=== PATIENT | male | born 1965 | race Caucasian/White ===

== ENCOUNTER 2017-01-06 16:45 | Emergency (ER) | payer OTHER ==
[~2017-01-06] VITALS: Ht 165.1 cm; Wt 75.9 kg
[~2017-01-06 16:45] MED LIST: ASPI81CT89 PO; METF500T PO; METO25TA PO; SIMV20TA1 PO; SYN.075 PO; VAS2.5 PO
--- NOTE | 2017-01-06 16:45 | NUR ---
PATIENT AMBULATED TO ER BED
[2017-01-06 16:46] VITALS: BP 147/88
[2017-01-06] MEDS ORDERED: NACL 0.9% 1,000 ML IV SCH (16:54)
--- NOTE | 2017-01-06 16:54 | NUR ---
Patient being evaluated by physician at bedside.
[2017-01-06 17:23] LABS: APPEARANCE,URINE CLEAR (CLEAR); BLOOD, URINE NEGATIVE (NEGATIVE); COLOR,URINE YELLOW (YELLOW); LEUKOCYTE ESTERASE ,URINE NEGATIVE (NEGATIVE); NITRITE, URINE NEGATIVE (NEGATIVE); PROTEIN,URINE TRACE (NEGATIVE); UGLUCOSE TRACE (NEGATIVE)
[2017-01-06 17:24] LABS: ANION GAP 13.3 (8-16); CALCIUM 10.7 mg/dL (8.5-10.1); CARBON DIOXIDE 27.7 mmol/L (21-32); CREATININE 1.1 mg/dL (0.6-1.3)
[2017-01-06 17:30] LABS: ALBUMIN 3.4 g/dL (3.4-5.0); TOTAL BILIRUBIN 0.9 mg/dL (0.0-1.0); TOTAL PROTEIN, SERUM 8.9 g/dL (6.4-8.2)
--- NOTE | 2017-01-06 17:30 | NUR ---
51/M BIB FAMILY C/O RIGHT TESTICULAR SWELLING x 2 WEEKS. PT DENIES PAIN AT THIS TIME. PT DENIES TRAUMA OR INJURY. RIGHT TESTICLE POS SWELLING, NEG REDNESS NO SIGN OF INJURY. AAOx4, PERRLA, BREATHING EVEN AND UNLABORED. ERMD NOTIFIED OF PATIENT STATUS.
[2017-01-06 17:31] LABS: BILIRUBIN,URINE NEGATIVE (NEGATIVE)
[2017-01-06 17:32] LABS: BASOPHILS % (AUTO) 0.9 % (0.0-2.0); EOSINOPHILS # (AUTO) 0.1 K/uL (0-0.4); EOSINOPHILS % (AUTO) 2.7 % (0.0-4.0); HEMATOCRIT 41.2 % (36-52); HEMOGLOBIN 13.4 g/dL (12.0-18.0); LYMPHOCYTES # (AUTO) 1.2 K/uL (2.0-11.5); LYMPHOCYTES % (AUTO) 23.5 % (20.5-51.1); MEAN CORPUSCULAR HEMOGLOBIN 27 pg (27-31); MEAN CORPUSCULAR HGB CONC 33 g/dL (33-37); MEAN CORPUSCULAR VOLUME 83 fL (80-94); MONOCYTES # (AUTO) 0.5 K/uL (0.8-1.0); MONOCYTES % (AUTO) 9.4 % (1.7-9.3); NEUTROPHILS # (AUTO) 3.2 K/uL (1.8-7.7); NEUTROPHILS % (AUTO) 63.5 % (42.2-75.2); PLATELET COUNT (AUTO) 191 K/uL (140-450); RED BLOOD CELL COUNT(AUTO) 4.99 MIL/uL (4.20-6.10); RED CELL DISTRIBUTION WIDTH 13.2 % (11.6-13.7)
[2017-01-06 17:33] LABS: BACTERIA,URINE RARE /HPF (None Seen); MUCUS,URINE 3+ /LPF (None Seen); RBC,URINE 0-3 /HPF (0-5); SQUAMOUS EPITHELIAL CELL,UR 0-3 /LPF (0-3 (FEW)); WBC,URINE 0-3 /HPF (0-5)
--- NOTE | 2017-01-06 17:45 | NUR ---
Patient being evaluated by physician at bedside.
--- NOTE | 2017-01-06 18:02 | NUR ---
Patient discharged with v/s stable. Written and verbal after care instructions given and explained. Patient alert, oriented and verbalized understanding of instructions. Ambulatory with steady gait. All questions addressed prior to discharge. ID band removed. Patient advised to follow up with PMD. Rx of TYLENOL 325MG AND DOXYCYCLINE 100MG given. Patient educated on indication of medication including possible reaction and side effects. Opportunity to ask questions provided and answered.
[2017-01-06 18:03] VITALS: BP 132/82
== END 2017-01-06 18:02 | disposition home or self-care (01) ==
LOC: MED 16:45
DX: N50.89 Other specified disorders of the male genital organs (principal); R03.0 Elevated blood-pressure reading, without diagnosis of hypertension; E11.9 Type 2 diabetes mellitus without complications; I10 Essential (primary) hypertension; E05.90 Thyrotoxicosis, unspecified without thyrotoxic crisis or storm; Z79.82 Long term (current) use of aspirin
CPT/HCPCS: 36415; 76870; 80053; 81001; 82150; 83690; 85025; 99285

== ENCOUNTER 2018-03-18 05:45 | Emergency (ER) | payer MEDICAID, OTHER ==
[~2018-03-18] VITALS: Ht 165.1 cm; Wt 71.7 kg
[2018-03-18 05:50] VITALS: BP 212/125
--- NOTE | 2018-03-18 05:54 | NUR ---
PT TAKEN TO BED 11
--- NOTE | 2018-03-18 06:07 | NUR ---
Dr. Gutierrez evaluating patient at bedside.
[2018-03-18] MEDS ORDERED: ENALAPRILAT 2.5 MG/2 ML VIAL IVP ONE (06:10)
[2018-03-18] MEDS ORDERED: hydrALAZINE 20 MG/ML VIAL IVP ONE (06:10)
--- NOTE | 2018-03-18 06:15 | NUR ---
C/O POSTERIOR HEAD PAIN THAT RADIATES TO NECK S/P FALL 3 WEEKS AGO. PT HAS HAD INTERMITTENT HEADACHES SINCE INCIDENT. PT AA&OX4,PERRL. PT HAS ELEVATED BP ON ARRIVAL TO ED STATES HE DID NOT TAKE HIS BP RX TODAY. SKIN TO BACK OF HEAD WARM, DRY, INTACT, NO REDNESS OR SWELLING NOTED. PMH HTN, DM
--- NOTE | 2018-03-18 06:45 | NUR ---
PT TAKEN TO CT SCAN VIA WHEELCHAIR
--- NOTE | 2018-03-18 06:58 | NUR ---
Alyx martínez in [facility] - 03/18/18 at 0703 by ALEC PT RETURNED FROM CT SCAN VIA WHEELCHAIR.
--- NOTE | 2018-03-18 06:59 | NUR ---
PT WHEELED BACK FROM CT VIA WHEELCHAIR IN STABLE CONDITION
[2018-03-18 07:00] LABS: BASOPHILS % (AUTO) 1.2 % (0.0-2.0); EOSINOPHILS # (AUTO) 0.1 K/uL (0-0.4); EOSINOPHILS % (AUTO) 3.3 % (0.0-4.0); HEMATOCRIT 30.3 % (36-52); HEMOGLOBIN 10.8 g/dL (12.0-18.0); LYMPHOCYTES # (AUTO) 0.8 K/uL (2.0-11.5); LYMPHOCYTES % (AUTO) 22.6 % (20.5-51.1); MEAN CORPUSCULAR HEMOGLOBIN 29 pg (27-31); MEAN CORPUSCULAR HGB CONC 36 g/dL (33-37); MEAN CORPUSCULAR VOLUME 80.4 fL (80-94); MONOCYTES # (AUTO) 0.4 K/uL (0.8-1.0); MONOCYTES % (AUTO) 11.1 % (1.7-9.3); NEUTROPHILS # (AUTO) 2.2 K/uL (1.8-7.7); NEUTROPHILS % (AUTO) 61.8 % (42.2-75.2); PLATELET COUNT (AUTO) 142 K/uL (140-450); RED BLOOD CELL COUNT(AUTO) 3.77 MIL/uL (4.20-6.10); WHITE BLOOD COUNT (AUTO) 3.6 K/uL (4.8-10.8)
[2018-03-18 07:06] LABS: ANION GAP 10.8 (8-16); CARBON DIOXIDE 29.8 mmol/L (21-32); CREATININE 2.3 mg/dL (0.7-1.3); POTASSIUM 3.6 mmol/L (3.5-5.1)
--- NOTE | 2018-03-18 07:15 | NUR ---
report given to ashley Maya, transfer of care at this time.
[2018-03-18] MEDS ORDERED: cloNIDine 0.1 MG TAB PO ONE (07:20)
--- NOTE | 2018-03-18 07:39 | NUR ---
PT AWAKE, ALERT, ORIENTED, IN NAD. PT CURRENTLY HYPERTYENSIVEM, 187 DR LIND INFORMED, MEDICATED WITH CLONIDINE 0.2MG ORDERED.PT DENIES ANY HEADACHE, CHEST PAIN OR SOB. RESP EVEN AND UNLABORED, SKIN W/D/I. PT ON TELE-SR, AFEBRILE. AWAIITNG ADMISSION BED AND FURTHER LAB TEST RESULTS. CN TEIDA AWARE.
[2018-03-18 07:43] LABS: ALBUMIN 3.4 g/dL (3.4-5.0); TOTAL BILIRUBIN 0.6 mg/dL (0.0-1.0)
[2018-03-18 08:30] LABS: CREATINE KINASE MB 1.3 ng/mL (0-3.6)
--- NOTE | 2018-03-18 09:06 | NUR ---
NO ACUTE CHNAGE IN CONDITION DR LIND INFORMED THAT OT REORTS MILD GNERELAIZED HEADACHE 11/24 AND REQUESTING TYLENOL. NO ORDERS RECEIVED AT THIS TIME
--- NOTE | 2018-03-18 11:00 | NUR ---
COVERING FOR NURSE WILLIAM FOR THE CARE OF PATIENT
[2018-03-18 12:08] VITALS: BP 134/76
--- NOTE | 2018-03-18 12:08 | NUR ---
Patient discharged with v/s stable. Written and verbal after care instructions given and explained. Patient alert, oriented and verbalized understanding of instructions. Ambulatory with steady gait. All questions addressed prior to discharge. ID band removed. Patient advised to follow up with PMD. Rx of CLONIDINE given. Patient educated on indication of medication including possible reaction and side effects. Opportunity to ask questions provided and answered.
[2018-03-18 12:10] LABS: BARBITURATE, URINE NEGATIVE ng/ml (NEG <=200); BENZODIAZEPINE, URINE NEGATIVE ng/mL (NEG <=200); CANNABINOID, URINE NEGATIVE ng/mL (NEG <=50); COCAINE, URINE NEGATIVE ng/mL (NEG <=300); OPIATE, URINE NEGATIVE ng/mL (NEG <=2000); PHENCYCLIDINE SCREEN,URINE NEGATIVE ng/mL (NEG <=25)
[2018-03-18 13:09] LABS: APPEARANCE,URINE CLEAR (CLEAR); COLOR,URINE YELLOW (YELLOW)
[2018-03-18 13:10] LABS: BILIRUBIN,URINE NEGATIVE (NEGATIVE); BLOOD, URINE NEGATIVE (NEGATIVE); LEUKOCYTE ESTERASE ,URINE NEGATIVE (NEGATIVE); NITRITE, URINE NEGATIVE (NEGATIVE); UGLUCOSE TRACE (NEGATIVE)
[2018-03-18 13:12] LABS: RBC,URINE 0-5 (RARE) /HPF (0-5); WBC,URINE 0-5 (RARE) /HPF (0-5)
== END 2018-03-18 12:08 | disposition home or self-care (01) ==
LOC: MED 05:45
DX: G44.209 Tension-type headache, unspecified, not intractable (principal); I12.9 Hypertensive chronic kidney disease with stage 1 through stage 4 chronic kidney disease, or unspecified chronic kidney disease; N18.3 Chronic kidney disease, stage 3 (moderate); E11.22 Type 2 diabetes mellitus with diabetic chronic kidney disease; E78.5 Hyperlipidemia, unspecified; Z79.899 Other long term (current) drug therapy
CPT/HCPCS: 36415; 70450; 71045; 80053; 80305; 81001; 82550; 82553; 83880; 84484; 85025; 93005; 96374; 96375; 99285; J0360; J3490

== ENCOUNTER 2018-06-03 16:04 | Emergency (ER) | payer MEDICAID ==
[~2018-06-03] VITALS: Ht 165.1 cm; Wt 73.5 kg
[2018-06-03 16:20] VITALS: BP 176/89
[2018-06-03] MEDS ORDERED: KETOROLAC 30 MG/ML VIAL IM ONE (19:15)
[2018-06-03 19:35] VITALS: BP 70/89
== END 2018-06-03 19:35 | disposition home or self-care (01) ==
LOC: MED 16:04
DX: S86.811A Strain of other muscle(s) and tendon(s) at lower leg level, right leg, initial encounter (principal); E11.9 Type 2 diabetes mellitus without complications; I10 Essential (primary) hypertension; E05.90 Thyrotoxicosis, unspecified without thyrotoxic crisis or storm; Z79.899 Other long term (current) drug therapy; Z79.82 Long term (current) use of aspirin; X58.XXXA Exposure to other specified factors, initial encounter; Y93.89 Activity, other specified; Y92.89 Other specified places as the place of occurrence of the external cause; Y99.8 Other external cause status
CPT/HCPCS: 93971; 96372; 99284; J1885; Q0092

== ENCOUNTER 2018-07-18 20:38 | Inpatient (IN) | payer MEDICAID ==
[~2018-07-18] VITALS: Ht 165.1 cm; Wt 71.7 kg
[2018-07-18 20:41] VITALS: BP 230/110
[2018-07-18 21:13] LABS: BASOPHILS % (AUTO) 0.4 % (0.0-2.0); EOSINOPHILS # (AUTO) 0.1 K/uL (0-0.4); EOSINOPHILS % (AUTO) 3.9 % (0.0-4.0); HEMOGLOBIN 8.8 g/dL (12.0-18.0); LYMPHOCYTES % (AUTO) 29.9 % (20.5-51.1); MEAN CORPUSCULAR HEMOGLOBIN 29 pg (27-31); MEAN CORPUSCULAR HGB CONC 35 g/dL (33-37); MEAN CORPUSCULAR VOLUME 82.3 fL (80-94); MONOCYTES # (AUTO) 0.4 K/uL (0.8-1.0); MONOCYTES % (AUTO) 10.6 % (1.7-9.3); NEUTROPHILS # (AUTO) 1.9 K/uL (1.8-7.7); NEUTROPHILS % (AUTO) 55.2 % (42.2-75.2); RED BLOOD CELL COUNT(AUTO) 3.04 MIL/uL (4.20-6.10); RED CELL DISTRIBUTION WIDTH 14.1 % (11.6-13.7); WHITE BLOOD COUNT (AUTO) 3.4 K/uL (4.8-10.8)
[2018-07-18 21:20] LABS: PLATELET COUNT (AUTO) 112 K/uL (140-450)
[2018-07-18 21:42] LABS: ALBUMIN 3.5 g/dL (3.4-5.0); ANION GAP 9.2 (8-16); CARBON DIOXIDE 29.6 mmol/L (21-32); CREATININE 2.5 mg/dL (0.7-1.3); TOTAL BILIRUBIN 0.5 mg/dL (0.0-1.0)
[2018-07-18 21:57] LABS: POTASSIUM 2.8 mmol/L (3.5-5.1)
[2018-07-18] MEDS ORDERED: hydrALAZINE 20 MG/ML VIAL IVP STA (22:39)
[2018-07-18] MEDS ORDERED: POTASSIUM CHLORIDE 10 MEQ TABER PO ONE (22:40)
[2018-07-18] MEDS ORDERED: NACL 0.9% 1,000 ML IV ONE (22:40)
[2018-07-19] MEDS ORDERED: CLAR500T PO (01:29)
[2018-07-19] MEDS ORDERED: LOSA100T15 PO (01:29)
[2018-07-19] MEDS ORDERED: LORA10TA19 PO (01:29)
[2018-07-19] MEDS ORDERED: ACETAMINOPHEN EXTRA STRENGTH 500 MG TAB PO ONE (01:45)
[2018-07-19] MEDS ORDERED: NACL 0.9% 1,000 ML IV SCH (04:36)
[2018-07-19] MEDS ORDERED: KCL 20 MEQ/WATER INJ PREMIX 200 ML IV ONE (04:40)
[2018-07-19] MEDS ORDERED: LORazepam 2 MG/ML VIAL IM/IVP PRN (04:40)
[2018-07-19] MEDS ORDERED: HYDROcodone/APAP 5/325 MG 1 TAB TAB PO PRN (04:40)
[2018-07-19] MEDS ORDERED: DOCUSATE SODIUM 100 MG GELCAP PO PRN (04:40)
[2018-07-19] MEDS ORDERED: ONDANSETRON 4 MG/2 ML VIAL IM/IVP PRN (04:40)
[2018-07-19] MEDS ORDERED: MORPHINE SULFATE 4 MG/ML SYR IVP PRN (04:40)
[2018-07-19] MEDS ORDERED: ZOLPIDEM 5 MG TAB PO PRN (04:40)
[2018-07-19] MEDS ORDERED: INSULIN LISPRO SLIDING SCALE 100 UNITS/ML VIAL SUBQ PRN (04:55)
[2018-07-19] MEDS ORDERED: DEXTROSE 50% 50 ML SYR IVP PRN (04:55)
[2018-07-19] MEDS ORDERED: hydrALAZINE 20 MG/ML VIAL IVP ONE (05:00)
[2018-07-19 05:10] VITALS: BP 180/93
[2018-07-19] MEDS: BLOOD GLUCOSE MONITORING 1 DEV DEV FS SCH ×4 (05:46→20:57)
[2018-07-19 06:10] VITALS: BP 155/74
[2018-07-19] MEDS ORDERED: POTASSIUM CHLORIDE 10 MEQ TABER PO SCH (06:40)
[2018-07-19] MEDS ORDERED: POTASSIUM CHLORIDE 40 MEQ, LIDOCAINE MPF 1% - 5 mL VIAL 25 MG in NACL 0.9% 250 ML IV SCH (06:40)
[2018-07-19 08:00] VITALS: BP 157/80
[2018-07-19] MEDS: ACETAMINOPHEN 325 MG TAB PO PRN ×2 (08:23→18:41)
[2018-07-19] MEDS ORDERED: NON-FORMULARY ITEM (Losartan Potassium 1 TAB) PO SCH (09:00)
[2018-07-19] MEDS ORDERED: LEVOTHYROXINE 0.075 MG TAB PO SCH (09:00)
[2018-07-19] MEDS ORDERED: LOSARTAN 50 MG TAB PO SCH (09:00)
[2018-07-19] MEDS ORDERED: LORATADINE 10 MG TAB PO SCH (09:00)
[2018-07-19 09:07] LABS: BASOPHILS % (AUTO) 0.6 % (0.0-2.0); EOSINOPHILS # (AUTO) 0.1 K/uL (0-0.4); EOSINOPHILS % (AUTO) 3.3 % (0.0-4.0); HEMATOCRIT 26.4 % (36-52); HEMOGLOBIN 9.3 g/dL (12.0-18.0); LYMPHOCYTES # (AUTO) 0.8 K/uL (2.0-11.5); LYMPHOCYTES % (AUTO) 25.4 % (20.5-51.1); MEAN CORPUSCULAR HEMOGLOBIN 29 pg (27-31); MEAN CORPUSCULAR HGB CONC 35 g/dL (33-37); MEAN CORPUSCULAR VOLUME 82.5 fL (80-94); MONOCYTES # (AUTO) 0.3 K/uL (0.8-1.0); MONOCYTES % (AUTO) 7.7 % (1.7-9.3); NEUTROPHILS # (AUTO) 2.1 K/uL (1.8-7.7); PLATELET COUNT (AUTO) 114 K/uL (140-450); RED CELL DISTRIBUTION WIDTH 14.5 % (11.6-13.7); WHITE BLOOD COUNT (AUTO) 3.3 K/uL (4.8-10.8)
[2018-07-19 09:16] LABS: ANION GAP 12.4 (8-16); CARBON DIOXIDE 26.1 mmol/L (21-32); CREATININE 2.2 mg/dL (0.7-1.3); POTASSIUM 3.5 mmol/L (3.5-5.1)
[2018-07-19 09:27] LABS: CHOL/HDL RATIO 5.4 (1-4.5); MAGNESIUM 1.7 mg/dL (1.8-2.4); PHOSPHORUS 2.5 mg/dL (2.5-4.9); PROTHROMBIN TIME 11.6 secs (10.8-13.4); THYROID STIMULATING HORMONE 19.4 uIU/mL (0.34-3.74)
[2018-07-19] MEDS ORDERED: AMLO5TAB PO ×2 (11:24→21:28)
[2018-07-19 12:00] VITALS: BP 192/98
[2018-07-19] MEDS ORDERED: METOPROLOL 25 MG TAB PO SCH ×2 (13:30→21:00)
[2018-07-19 14:15] VITALS: BP 172/86
[2018-07-19] MEDS ORDERED: hydrALAZINE 20 MG/ML VIAL IVP PRN (16:25)
[2018-07-19] MEDS ORDERED: MAGNESIUM OXIDE 400 MG TAB PO SCH (18:00)
[2018-07-19] MEDS ORDERED: LABETALOL 100 MG/20 ML VIAL IV PRN (18:45)
[2018-07-19] MEDS ORDERED: MORPHINE SULFATE 4 MG/ML SYR IVP SCH (19:15)
[2018-07-19 20:00] VITALS: BP 182/84
[2018-07-19] MEDS ORDERED: SIMVASTATIN 20 MG TAB PO SCH (21:00)
[2018-07-20] MEDS ORDERED: LEVOTHYROXINE 0.088 MG TAB PO SCH (06:30)
== END 2018-07-19 21:30 | disposition short-term general hospital (02) | DRG 42 ==
LOC: MED 20:38 → MTU 07-19 04:38
PROVIDERS: ADMIT Family Medicine; ATTEND Family Medicine
DX: G91.1 Obstructive hydrocephalus (principal); D61.1 Drug-induced aplastic anemia; I10 Essential (primary) hypertension; E83.52 Hypercalcemia; R51 Headache; E03.9 Hypothyroidism, unspecified; E87.6 Hypokalemia; E11.9 Type 2 diabetes mellitus without complications; T50.905A Adverse effect of unspecified drugs, medicaments and biological substances, initial encounter; E78.5 Hyperlipidemia, unspecified; Z79.899 Other long term (current) drug therapy; Z79.84 Long term (current) use of oral hypoglycemic drugs; Y92.89 Other specified places as the place of occurrence of the external cause; Z91.14 Patient's other noncompliance with medication regimen
CPT/HCPCS: 36415; 70450; 76770; 80048; 80053; 82607; 82728; 82746; 82948; 83036; 83540; 83690; 83735; 84100; 84134; 84443; 84484; 85025; 85045; 85610; 85730; 87081; 96361; 96374; 99285; J0360; J3480; J7030; Q0092

== ENCOUNTER 2018-12-28 02:12 | Emergency (ER) | payer MEDICAID ==
[~2018-12-28] VITALS: Ht 165.1 cm; Wt 71.7 kg
[~2018-12-28 02:12] MED LIST changes: +AMLO5TAB PO; -ASPI81CT89 PO; +LORA10TA19 PO; -METF500T PO; -METO25TA PO; -VAS2.5 PO
[2018-12-28 02:16] VITALS: BP 176/146
--- NOTE | 2018-12-28 02:22 | NUR ---
PT AMBULATED TO BED 7.
--- NOTE | 2018-12-28 02:30 | NUR ---
PT BIB SELF C/O COUGHING X1 WEEK. PT STATES HE WAS CHOKING ON MUCOUS PRODUCTION FROM COUGH AND FELT SOB TODAY AT HOME, MUCOUS WAS THIN, WHITE. PT STATES 8/10 SHARP/SHOOTING PAIN FROM [place] RADIATING FROM LOWER BACK TO RIGHT LEG. DENIES N/V/D, SOB, CP, OR BLURRIED VISION AT THIS TIME. --PT ACTING APPROPRIATLY. LUNG SOUNDS COARSE IN RL LOBE. CHEST RISE AND FALL EQUAL AND UNLABORED BL. PT IN GOWN, IN BED; BED IN LOWER LOCKED POSITION. PT PLACED ON BEDSIDE PHOSPHORUS PROCESSING SUPERVISOR. ER MD AWARE OF PT STATUS. WILL CONTINUE TO MONITOR. PMH: HTN, HYPOTHYROID RX: DENIES
--- NOTE | 2018-12-28 02:45 | NUR ---
PT TAKEN TO X-RAY, VIA WHEELCHAIR BY TECH. PT B/P 211/108, ER AWARE OF PT STATUS, OK TO GO TO X-RAY.
--- NOTE | 2018-12-28 03:15 | NUR ---
DR. CADENA AT BEDSIDE FOR EVALUATION.
[2018-12-28] MEDS ORDERED: METOPROLOL SUCCINATE 50 MG TABER PO SCH (03:25)
--- NOTE | 2018-12-28 03:34 | NUR ---
LAB AT BEDSIDE.
[2018-12-28 03:55] LABS: BASOPHILS % (AUTO) 0.3 % (0.0-2.0); EOSINOPHILS # (AUTO) 0.1 K/uL (0-0.4); EOSINOPHILS % (AUTO) 2.9 % (0.0-4.0); HEMATOCRIT 27.7 % (36-52); HEMOGLOBIN 9.9 g/dL (12.0-18.0); LYMPHOCYTES # (AUTO) 0.8 K/uL (2.0-11.5); LYMPHOCYTES % (AUTO) 15.8 % (20.5-51.1); MEAN CORPUSCULAR HEMOGLOBIN 30 pg (27-31); MEAN CORPUSCULAR HGB CONC 36 g/dL (33-37); MEAN CORPUSCULAR VOLUME 83.5 fL (80-94); MONOCYTES # (AUTO) 0.3 K/uL (0.8-1.0); MONOCYTES % (AUTO) 7.1 % (1.7-9.3); NEUTROPHILS # (AUTO) 3.6 K/uL (1.8-7.7); NEUTROPHILS % (AUTO) 73.9 % (42.2-75.2); PLATELET COUNT (AUTO) 139 K/uL (140-450); RED BLOOD CELL COUNT(AUTO) 3.32 MIL/uL (4.20-6.10); RED CELL DISTRIBUTION WIDTH 14.4 % (11.6-13.7); WHITE BLOOD COUNT (AUTO) 4.8 K/uL (4.8-10.8)
[2018-12-28 04:19] LABS: ALBUMIN 3.4 g/dL (3.4-5.0); CARBON DIOXIDE 30.7 mmol/L (21-32); CREATININE 2.4 mg/dL (0.7-1.3); TOTAL BILIRUBIN 0.6 mg/dL (0.0-1.0)
[2018-12-28] MEDS ORDERED: NIFEdipine 30 MG TABER PO ONE ×2 (04:20→04:29)
[2018-12-28 04:22] LABS: POTASSIUM 2.7 mmol/L (3.5-5.1)
[2018-12-28] MEDS ORDERED: POTASSIUM CHL 10 MEQ/D5-1/2NS 1,000 ML IV ONE (04:30)
[2018-12-28] MEDS ORDERED: POTASSIUM CHLORIDE 10 MEQ TABER PO ONE (04:30)
[2018-12-28] MEDS ORDERED: ACETAMINOPHEN EXTRA STRENGTH 500 MG TAB PO ONE (04:35)
[2018-12-28] MEDS ORDERED: MAG SULF 2000 MG/WATER PREMIX 25 ML IV ONE (04:35)
--- NOTE | 2018-12-28 05:06 | NUR ---
COMFORT MEASURES PROVIDED. SAFETY PRECAUTIONS IN PLACE. WILL CONTINUE TO MONITOR.
--- NOTE | 2018-12-28 06:13 | NUR ---
Patient acting appropriatly, patient states 1/10 at this time, and states he ready to go home. ER md aware of patient VSS prior to discharge. Written and verbal after care instructions given and explained. Patient alert, oriented and verbalized understanding of instructions. Ambulatory with steady gait. All questions addressed prior to discharge. ID band removed. Patient advised to follow up with PMD. Rx of Acetaminophen given. Patient educated on indication of medication including possible reaction and side effects. Opportunity to ask questions provided and answered.
[2018-12-28 06:16] VITALS: BP 190/98
[2018-12-28] MEDS ORDERED: HYDROCHLOROTHIAZIDE 25 MG TAB PO SCH (09:00)
== END 2018-12-28 06:13 | disposition home or self-care (01) ==
LOC: MED 02:12
DX: J06.9 Acute upper respiratory infection, unspecified (principal); I10 Essential (primary) hypertension; E03.9 Hypothyroidism, unspecified; Z79.899 Other long term (current) drug therapy
CPT/HCPCS: 36415; 71046; 80053; 81002; 83735; 83880; 84484; 85025; 93005; 96365; 99284; J3475

== ENCOUNTER 2019-02-28 02:13 | Emergency (ER) | payer BC, MEDICAID ==
[~2019-02-28] VITALS: Ht 165.1 cm; Wt 72.6 kg
[2019-02-28 02:15] VITALS: BP 200/110
--- NOTE | 2019-02-28 02:15 | NUR ---
PATIENT PRESENTS TO ED WITH C/O CHRONIC LOW BACK PAIN RADIATING TO R LEG X 2 YEARS. PATIENT ALSO PRESENT WITH HIGH BP 200'SBP, PATIENT DOES C/O HOPKINS, DENIES ANY CP NO SOB, NOR DIZZINESS OR BLURRED VISION . PATIENT STATES HE HAS HTN, TAKES ANTIHYPERTENSIVE MEDICATION DAILY THOUGH DOES NOT KNOW NAME OF DRUG. PATIENT ALSO STATES HE DOES NOT CHECK BP REGULARLY; PATIENT GCS 15, AAOX4, AMBULATORY WITH STEADY GAIT, ACCOMAPNIED BY DAUGHTETR. SKIN IS PINK/WARM/DRY; AAOX4 WITH EVEN AND STEADY GAIT; LUNGS CLEAR BL; HR EVEN AND REGULAR; PT DENIES ANY FEVER, CP, SOB, OR COUGH AT THIS TIME; PATIENT STATES PAIN OF 9/10 AT THIS TIME; VSS; PATIENT POSITIONED FOR COMFORT; HOB ELEVATED; BEDRAILS UP X2; BED DOWN. ER MD MADE AWARE OF PT STATUS.
--- NOTE | 2019-02-28 02:15 | NUR ---
TO BED # 05 AMBULATORY
--- NOTE | 2019-02-28 02:15 | NUR ---
Patient being evaluated by physician at bedside.
[2019-02-28] MEDS ORDERED: MORPHINE SULFATE 4 MG/ML SYR IVP ONE (02:30)
[2019-02-28] MEDS ORDERED: hydrALAZINE 20 MG/ML VIAL IVP ONE ×2 (02:30→03:40)
[2019-02-28] MEDS ORDERED: cloNIDine 0.1 MG TAB PO ONE (02:30)
[2019-02-28 02:56] LABS: BASOPHILS % (AUTO) 0.9 % (0.0-2.0); EOSINOPHILS # (AUTO) 0.1 K/uL (0-0.4); EOSINOPHILS % (AUTO) 3.7 % (0.0-4.0); HEMATOCRIT 24.8 % (36-52); LYMPHOCYTES # (AUTO) 0.8 K/uL (2.0-11.5); LYMPHOCYTES % (AUTO) 26.6 % (20.5-51.1); MEAN CORPUSCULAR HEMOGLOBIN 30 pg (27-31); MEAN CORPUSCULAR HGB CONC 36 g/dL (33-37); MEAN CORPUSCULAR VOLUME 82.2 fL (80-94); MONOCYTES # (AUTO) 0.4 K/uL (0.8-1.0); NEUTROPHILS # (AUTO) 1.7 K/uL (1.8-7.7); NEUTROPHILS % (AUTO) 56.8 % (42.2-75.2); PLATELET COUNT (AUTO) 107 K/uL (140-450); RED BLOOD CELL COUNT(AUTO) 3.01 MIL/uL (4.20-6.10); RED CELL DISTRIBUTION WIDTH 14.3 % (11.6-13.7)
[2019-02-28 03:12] LABS: ALBUMIN 3.5 g/dL (3.4-5.0); ANION GAP 10.5 (8-16); CARBON DIOXIDE 27.3 mmol/L (21-32); CREATININE 2.7 mg/dL (0.7-1.3); TOTAL BILIRUBIN 0.5 mg/dL (0.0-1.0)
[2019-02-28 03:18] LABS: POTASSIUM 2.8 mmol/L (3.5-5.1)
[2019-02-28] MEDS ORDERED: POTASSIUM CHLORIDE 10 MEQ TABER PO ONE (03:25)
[2019-02-28] MEDS ORDERED: NACL 0.9% 1,000 ML IV ONE (03:25)
--- NOTE | 2019-02-28 03:42 | NUR ---
CAROL MIMS CALLED FOR HYDRALAZINE
[2019-02-28] MEDS ORDERED: hydrALAZINE 20 MG/ML VIAL ONE (03:57)
--- NOTE | 2019-02-28 04:11 | NUR ---
Patient discharged with v/s stable. Written and verbal after care instructions given and explained. Patient alert, oriented and verbalized understanding of instructions. Ambulatory with steady gait. All questions addressed prior to discharge. ID band removed. Patient advised to follow up with PMD. Rx of ULTRAM given. Patient educated on indication of medication including possible reaction and side effects. Opportunity to ask questions provided and answered.Patient son at bedside, Hung will be transporting patient home
--- NOTE | 2019-02-28 04:11 | NUR ---
IV removed, catheter intact and site benign. Applied folded 4x4 gauze and tape to stop bleeding.
[2019-02-28 04:12] VITALS: BP 164/85
== END 2019-02-28 04:12 | disposition home or self-care (01) ==
LOC: MED 02:13
DX: M54.41 Lumbago with sciatica, right side (principal); I10 Essential (primary) hypertension; D61.818 Other pancytopenia; E87.6 Hypokalemia; I12.9 Hypertensive chronic kidney disease with stage 1 through stage 4 chronic kidney disease, or unspecified chronic kidney disease; N18.9 Chronic kidney disease, unspecified; E03.9 Hypothyroidism, unspecified; E83.52 Hypercalcemia; Z79.899 Other long term (current) drug therapy
CPT/HCPCS: 36415; 80053; 85025; 96374; 96375; 96376; 99283; J0360; J2270

== ENCOUNTER 2019-03-25 19:56 | Emergency (ER) | payer BC, MEDICAID ==
[~2019-03-25] VITALS: Ht 165.1 cm; Wt 68.6 kg
[2019-03-25 20:00] VITALS: BP 231/131
--- NOTE | 2019-03-25 20:14 | NUR ---
54 Y/O MALE BROUGHT IN BY DAUGHTERS. C/O OF CHRONIC LOWER BACK PAIN RADIATING TO LEGS. PT SEEN PCP FOR BACK PAIN. PT HERE FOR PAIN MANAGEMENT. AT TRIAGE PT C/O HEADACHE 710 PAIN ADULT SCALE. PT IS HYPERTENSIVE. CURRENT BP 248/129 PULSE 93. STATES TO HAVE BLURRED VISION. PT STATES VISION PROGRESSIVLY WORSENED THROUGHOUT THE DAY ALONG WITH HEADACHE. NO N/V. AMBULATORY. SHUFFLE GAIT. DAUGHTER STATES VOICE IS MILDLY SLURRED AND ABNORMAL. PT ALERT TO NAME, TIME, PLACE AND EVENT. ABLE TO MAKE NEEDS KNOWN. BILATERAL EYES PERRLA. HAND BOX STRAPPER STRONG AND EQUAL. SMILE IS SYMMETRICAL. C/O RASH TO BILATERAL LOWER EXTREMITIES. BED IN LOWEST POSITION. SAFETY MEASURES IN PLACE. ER MD AWARE. WILL CONTINUE TO MONITOR.
--- NOTE | 2019-03-25 20:14 | NUR ---
PT TAKEN TO BED 11
--- NOTE | 2019-03-25 20:15 | NUR ---
Alyx martínez in [facility] - 03/25/19 at 2015 by ELIZABETH ALEX CARRILLO WITH PT
[2019-03-25] MEDS ORDERED: hydrALAZINE 20 MG/ML VIAL IVP ONE ×2 (20:35→23:00)
--- NOTE | 2019-03-25 20:38 | NUR ---
EKG PERFORMED AT BEDSIDE
[2019-03-25 20:50] LABS: BASOPHILS % (AUTO) 0.4 % (0.0-2.0); EOSINOPHILS # (AUTO) 0.1 K/uL (0-0.4); EOSINOPHILS % (AUTO) 2.9 % (0.0-4.0); HEMATOCRIT 29.2 % (36-52); HEMOGLOBIN 10.3 g/dL (12.0-18.0); LYMPHOCYTES # (AUTO) 0.9 K/uL (2.0-11.5); LYMPHOCYTES % (AUTO) 22.4 % (20.5-51.1); MEAN CORPUSCULAR HEMOGLOBIN 29 pg (27-31); MEAN CORPUSCULAR HGB CONC 35 g/dL (33-37); MONOCYTES # (AUTO) 0.4 K/uL (0.8-1.0); MONOCYTES % (AUTO) 10.9 % (1.7-9.3); NEUTROPHILS # (AUTO) 2.6 K/uL (1.8-7.7); NEUTROPHILS % (AUTO) 63.4 % (42.2-75.2); PLATELET COUNT (AUTO) 158 K/uL (140-450); RED BLOOD CELL COUNT(AUTO) 3.52 MIL/uL (4.20-6.10); RED CELL DISTRIBUTION WIDTH 14.4 % (11.6-13.7); WHITE BLOOD COUNT (AUTO) 4.1 K/uL (4.8-10.8)
--- NOTE | 2019-03-25 20:53 | NUR ---
X-Ray at bedside.
[2019-03-25 21:03] LABS: APPEARANCE,URINE CLEAR (CLEAR); BILIRUBIN,URINE NEGATIVE (NEGATIVE); BLOOD, URINE 1+ (NEGATIVE); COLOR,URINE YELLOW (YELLOW); LEUKOCYTE ESTERASE ,URINE NEGATIVE (NEGATIVE); NITRITE, URINE NEGATIVE (NEGATIVE); UGLUCOSE 1+ (NEGATIVE)
[2019-03-25 21:06] LABS: PROTHROMBIN TIME 10.2 secs (10.8-13.4)
[2019-03-25 21:07] LABS: RBC,URINE 0-5 /HPF (0-5); WBC,URINE 0-5 /HPF (0-5)
[2019-03-25 21:13] LABS: CARBON DIOXIDE 27.7 mmol/L (21-32)
[2019-03-25 21:14] LABS: CREATININE 3.2 mg/dL (0.7-1.3); TOTAL BILIRUBIN 0.6 mg/dL (0.0-1.0)
[2019-03-25 21:16] LABS: POTASSIUM 2.7 mmol/L (3.5-5.1)
[2019-03-25] MEDS ORDERED: POTASSIUM CHLORIDE 10 MEQ TABER PO ONE (21:30)
--- NOTE | 2019-03-25 21:30 | NUR ---
BP REDUCED 217/101 WITH HR OR 87. CARMEN JOHNSON AT BEDSIDE FOR EVALUATION.
[2019-03-25] MEDS ORDERED: ONDANSETRON 4 MG/2 ML VIAL IVP ONE (21:55)
[2019-03-25] MEDS ORDERED: MORPHINE SULFATE 4 MG/ML SYR IVP ONE (21:55)
--- NOTE | 2019-03-25 22:18 | NUR ---
CURRENT VITALS 218/101 BP. PULSE 88. PT STATES PAIN IS MORE TOLERABLE. CARMEN JOHNSON NOTIFIED. WILL CONTINUE TO MONITOR.
[2019-03-25] MEDS ORDERED: cloNIDine 0.1 MG TAB PO ONE (23:00)
[2019-03-25] MEDS ORDERED: ONDANSETRON 4 MG/2 ML VIAL IVP PRN (23:35)
[2019-03-25] MEDS ORDERED: HYDROcodone/APAP 5/325 MG 1 TAB TAB PO PRN (23:35)
[2019-03-25] MEDS ORDERED: ACETAMINOPHEN 325 MG TAB PO PRN (23:35)
[2019-03-25] MEDS ORDERED: MORPHINE SULFATE 4 MG/ML SYR IVP PRN (23:35)
[2019-03-25] MEDS ORDERED: ALBUTEROL 0.083% 2.5 MG/3 ML NEBU INH PRN (23:35)
[2019-03-25] MEDS ORDERED: hydrALAZINE 20 MG/ML VIAL IVP PRN (23:35)
--- NOTE | 2019-03-25 23:40 | NUR ---
HIP HOP DANCE INSTRUCTOR CALLED TO CALL ON-CALL NURSE FOR ADMISSION.
--- NOTE | 2019-03-26 | NUR ---
PT IN BED RESTING. NO DISTRESS NOTED. FAMILY AT BEDSIDE. WILL CONTINUE TO MONITOR.
[2019-03-26] MEDS ORDERED: NITROPRUSSIDE 50 MG in DEXTROSE 5% 250 ML IV ONE (01:00)
--- NOTE | 2019-03-26 01:04 | NUR ---
CURRENT VITALS AT 169/69 BP. 97 PULSE. 21 RESP. 98 02 SAT. NO PT DISTRESS. SON AT BEDSIDE. WILLCONTINUE TO MONITOR.
[2019-03-26] MEDS ORDERED: NITROPRUSSIDE 50 MG in DEXTROSE 5% 250 ML IV PRN (01:15)
[2019-03-26] MEDS ORDERED: ONDANSETRON 4 MG/2 ML VIAL IVP ONE (01:25)
[2019-03-26] MEDS ORDERED: ONDANSETRON 4 MG/2 ML VIAL ONE (01:35)
[2019-03-26] MEDS ORDERED: LABETALOL 100 MG/20 ML VIAL IVP SCH (02:00)
--- NOTE | 2019-03-26 02:09 | NUR ---
LAST BP 167/[address] JEONG TEMPERARILY WITHHOLDING NITROPRUSSIDE DRIP AND LABETALOL IV DUE TO BP. BUT CONTINUE MONITORING. CURRENT BP IS 190/91 PULSE 84. WILL PUSH LABETALOL CONTINUE TO HOLD OFF ADMIN DRIP. WILL CONTINUE TO MONITOR.
--- NOTE | 2019-03-26 02:34 | NUR ---
PT RESPONDING TO LABETOLOL THEARPY. CURRENT VITALS 155/87 BP. PULSE 84. WILL CONTINUE TO MONITOR.
--- NOTE | 2019-03-26 02:45 | NUR ---
[facility]ORT AT BEDSIDE
--- NOTE | 2019-03-26 02:45 | NUR ---
REPORT GIVEN TO YUDI MYERS FROM [facility].
[2019-03-26 02:50] VITALS: BP 155/87
--- NOTE | 2019-03-26 02:50 | NUR ---
PT ALERT AND ORIENTED TO PERSON, PLACE, TIME AND EVENT. NO COMPLAINTS OF BLURRED VISION OR HEADACHE. SPEECH IS CLEAR, NO SLURRED SPEECH. BILATERAL HAND FRAME EXPANDER STRONG. AMBULATORY. STEADY GAIT. BP 155/87. PAIN 8/10 BUT STATES IT IS TOLERABLE. TRANSFERED OUT TO [facility] WITH [facility].
--- NOTE | 2019-03-26 02:55 | NUR ---
PT TAKEN BY [facility] TRANSPORT TO [facility] ICU BED 2
[2019-03-26] MEDS ORDERED: LEVOTHYROXINE 0.075 MG TAB PO SCH (06:30)
[2019-03-26] MEDS ORDERED: ASPIRIN 81 MG TAB.CHEW PO SCH (09:00)
[2019-03-26] MEDS ORDERED: LORATADINE 10 MG TAB PO SCH (09:00)
[2019-03-26] MEDS ORDERED: amLODIPine 5 MG TAB PO SCH (09:00)
[2019-03-26] MEDS ORDERED: SIMVASTATIN 20 MG TAB PO SCH (09:00)
[2019-03-26] MEDS ORDERED: SIMVASTATIN 40 MG TAB PO SCH (21:00)
== END 2019-03-26 02:50 | disposition short-term general hospital (02) ==
LOC: MED 19:56
DX: E11.22 Type 2 diabetes mellitus with diabetic chronic kidney disease (principal); I12.9 Hypertensive chronic kidney disease with stage 1 through stage 4 chronic kidney disease, or unspecified chronic kidney disease; N18.9 Chronic kidney disease, unspecified; I16.0 Hypertensive urgency; E87.6 Hypokalemia; Z79.899 Other long term (current) drug therapy
CPT/HCPCS: 36415; 70450; 71045; 76770; 80053; 81001; 84484; 85025; 85610; 85730; 86886; 86900; 86901; 93005; 96374; 96375; 96376; 99285; J0360; J2270; J2405; J3490; Q0092; 99284; J7060

== ENCOUNTER 2020-01-10 00:37 | Inpatient (IN) | payer MEDICAID, SELFPAY ==
[~2020-01-10] VITALS: Ht 165.1 cm; Wt 64.0 kg
--- NOTE | 2020-01-10 00:46 | NUR ---
PT RAD[facility] BLS TO ER BED 01
[2020-01-10 01:00] VITALS: BP 184/130
[2020-01-10] MEDS ORDERED: ACETAMINOPHEN EXTRA STRENGTH 500 MG TAB ONE (01:05)
[2020-01-10] MEDS ORDERED: ACETAMINOPHEN EXTRA STRENGTH 500 MG TAB PO ONE (01:10)
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
--- NOTE | 2020-01-10 01:40 | NUR ---
DR. MARVIN AT BEDSIDE EVALUATING PT.
[2020-01-10 02:10] LABS: BASOPHILS % (AUTO) 0.3 % (0.0-2.0); EOSINOPHILS # (AUTO) 0.1 K/uL (0-0.4); EOSINOPHILS % (AUTO) 1.8 % (0.0-4.0); HEMATOCRIT 27.2 % (36-52); HEMOGLOBIN 9.6 g/dL (12.0-18.0); LYMPHOCYTES # (AUTO) 0.6 K/uL (2.0-11.5); LYMPHOCYTES % (AUTO) 7.5 % (20.5-51.1); MEAN CORPUSCULAR HEMOGLOBIN 31 pg (27-31); MEAN CORPUSCULAR HGB CONC 35 g/dL (33-37); MEAN CORPUSCULAR VOLUME 88.2 fL (80-94); MONOCYTES # (AUTO) 0.3 K/uL (0.8-1.0); MONOCYTES % (AUTO) 4.5 % (1.7-9.3); NEUTROPHILS # (AUTO) 6.5 K/uL (1.8-7.7); PLATELET COUNT (AUTO) 124 K/uL (140-450); RED BLOOD CELL COUNT(AUTO) 3.08 MIL/uL (4.20-6.10); RED CELL DISTRIBUTION WIDTH 14.9 % (11.6-13.7); WHITE BLOOD COUNT (AUTO) 7.6 K/uL (4.8-10.8)
[2020-01-10 02:21] LABS: APPEARANCE,URINE CLEAR (CLEAR); BILIRUBIN,URINE NEGATIVE (NEGATIVE); BLOOD, URINE 1+ (NEGATIVE); COLOR,URINE YELLOW (YELLOW); LEUKOCYTE ESTERASE ,URINE NEGATIVE (NEGATIVE); NITRITE, URINE NEGATIVE (NEGATIVE); UGLUCOSE TRACE (NEGATIVE)
[2020-01-10 02:26] LABS: NEUTROPHILS % (AUTO) 85.9 % (42.2-75.2)
[2020-01-10 02:41] LABS: RSV NEGATIVE (NEGATIVE)
[2020-01-10] MEDS ORDERED: AZITHROMYCIN 500 MG in DEXTROSE 5% 250 ML IV ONE (02:50)
[2020-01-10] MEDS ORDERED: cefTRIAXone 1,000 MG VIAL ONE (02:59)
[2020-01-10] MEDS ORDERED: AZITHROMYCIN 500 MG INJ VIAL IV ONE (02:59)
[2020-01-10 03:04] LABS: RBC,URINE 0-5 /HPF (0-5); WBC,URINE NONE SEEN /HPF (0-5)
[2020-01-10 03:19] LABS: PROTHROMBIN TIME 10.6 secs (10.8-13.4)
[2020-01-10 03:20] LABS: ANION GAP 15.6 (8-16); CARBON DIOXIDE 22.6 mmol/L (21-32)
[2020-01-10 03:21] LABS: ALBUMIN 3.2 g/dL (3.4-5.0); CREATININE 2.2 mg/dL (0.6-1.3); TOTAL BILIRUBIN 0.6 mg/dL (0.0-1.0)
[2020-01-10 03:23] LABS: POTASSIUM 2.2 mmol/L (3.5-5.1)
[2020-01-10 03:24] LABS: LACTATE DEHYDROGENASE 188 U/L (85-227)
[2020-01-10 03:25] LABS: C-REACTIVE PROTEIN QUANT 3.2 mg/dL (0.0-0.9)
[2020-01-10] MEDS ORDERED: KCL 20 MEQ/WATER INJ PREMIX 100 ML IV ONE ×2 (03:38→03:40)
[2020-01-10] MEDS ORDERED: POTASSIUM CHLORIDE 10 MEQ TABER PO ONE ×3 (03:40→17:05)
[2020-01-10] MEDS ORDERED: MORPHINE SULFATE 2 MG/ML SYR IVP PRN (03:45)
[2020-01-10] MEDS ORDERED: ALBUTEROL HFA MDI 90 MCG/ACTUATION 8 GM INH PRN (03:45)
[2020-01-10] MEDS ORDERED: LORazepam 2 MG/ML VIAL IM/IVP PRN (03:45)
[2020-01-10] MEDS ORDERED: DOCUSATE SODIUM 100 MG GELCAP PO PRN (03:45)
[2020-01-10] MEDS ORDERED: ONDANSETRON 4 MG/2 ML VIAL IM/IVP PRN (03:45)
[2020-01-10] MEDS ORDERED: INSULIN LISPRO SLIDING SCALE 100 UNITS/ML VIAL SUBQ PRN (04:05)
[2020-01-10] MEDS ORDERED: DEXTROSE 50% 50 ML SYR IVP PRN (04:05)
[2020-01-10 04:13] LABS: MAGNESIUM 1.2 mg/dL (1.8-2.4); PHOSPHORUS 2.1 mg/dL (2.5-4.9); THYROID STIMULATING HORMONE 16.38 uIU/mL (0.34-3.74)
[2020-01-10] MEDS ORDERED: SODIUM PHOS / POTASSIUM PHOS 1 PKT PDR PO ONE (04:30)
[2020-01-10 04:45] VITALS: BP 153/89
--- NOTE | 2020-01-10 04:45 | NUR ---
PT ADMITTED FROM ED VIA GURNEY. PT WAS ESCORTED BY ED NURSE. REPORT RECEIVED FROM NURSE. PT IN STABLE CONDITION NO SIGNS OF DISTRESS NOTED. SKIN INTACT. RESPIRATIONS EVEN AND UNLABORED ON RA. TELE MONITOR ATTACHED. IV SITES ASSESSED FOR PATENCY.
--- NOTE | 2020-01-10 04:45 | NUR ---
Patient will be admitted to care of DR. MCCRAY. Admited to TELE. Will go to room 118. Belongings list completed. Report to LOUIS DURON.
[2020-01-10] MEDS: MAG SULF 2000 MG/WATER PREMIX 50 ML IV SCH ×2 (05:00→11:00)
[2020-01-10] MEDS: NACL 0.9% 1,000 ML IV SCH (05:00)
[2020-01-10] MEDS ORDERED: LEVOTHYROXINE 0.088 MG TAB PO SCH (06:30)
[2020-01-10] MEDS ORDERED: SODIUM PHOS / POTASSIUM PHOS 1 PKT PDR ONE (06:31)
[2020-01-10] MEDS: LEVOTHYROXINE 0.075 MG TAB PO SCH (06:33)
[2020-01-10] MEDS: BLOOD GLUCOSE MONITORING 1 DEV DEV FS SCH ×4 (06:43→21:00)
--- NOTE | 2020-01-10 06:50 | NUR ---
PT COMPLAINED ABOUT BURNING AT THE INFUSION SITE OF MAGNESIUM. SLOWED RATE FOR TOLERANCE. PT DID NOT COMPLAIN OF PAIN
--- NOTE | 2020-01-10 07:18 | NUR ---
ENDORSED PATIENT TO DAYSHIFT NURSE FOR CONTINUITY OF CARE. PT IN STABLE CONDITION ALL MONITORS ATTACHED
--- NOTE | 2020-01-10 07:18 | NUR ---
RECEIVED REPORT FROM NIGHT NURSE. PLANS OF CARE DISCUSSED. PATIENT IN STABLE CONDITION. PT IN BED, EASILY AROUSABLE BY NAME OR TOUCH. NO DISTRESS NOTED. CALL LIGHT WITHIN REACH.
[2020-01-10 08:00] VITALS: BP 150/86
[2020-01-10] MEDS: amLODIPine 5 MG TAB PO SCH ×2 (08:15→21:13)
[2020-01-10] MEDS: LORATADINE 10 MG TAB PO SCH (08:15)
[2020-01-10] MEDS: ENOXAPARIN 40 MG/0.4 ML SYR SUBQ SCH (08:16)
[2020-01-10] MEDS: ASCORBIC ACID 500 MG TAB PO SCH (08:16)
[2020-01-10] MEDS: ZINC SULF 220 MG CAP PO SCH (08:16)
[2020-01-10] MEDS: SIMVASTATIN 20 MG TAB PO SCH (08:16)
[2020-01-10] MEDS ORDERED: LEVOTHYROXINE 0.075 MG TAB PO SCH (09:00)
--- NOTE | 2020-01-10 09:00 | NUR ---
PATIENT REMAINS STABLE. PT AAOX4. AM MEDICATIONS GIVEN. NO DISTRESS NOTED. O2 SAT 98% ROOM AIR.
[2020-01-10 09:31] LABS: ANION GAP 15.4 (8-16); CARBON DIOXIDE 24.3 mmol/L (21-32); CREATININE 2.3 mg/dL (0.6-1.3)
[2020-01-10 09:47] LABS: POTASSIUM 2.7 mmol/L (3.5-5.1)
[2020-01-10] MEDS ORDERED: MAG SULF 2000 MG/WATER PREMIX 50 ML IV SCH (11:15)
[2020-01-10 12:00] VITALS: BP 158/85
--- NOTE | 2020-01-10 12:00 | NUR ---
PATIENT REMAINS STABLE. AAOX4. NO S/S OF DISTRESS NOTED. CALL LIGHT WITHIN REACH.
--- NOTE | 2020-01-10 15:00 | NUR ---
PATIENT REMAINS STABLE. NO S/S OF DISTRESS NOTED. CALL LIGHT WITHIN REACH. ABLE TO MAKE NEEDS KNOWN.
[2020-01-10 16:00] VITALS: BP 167/86
[2020-01-10 16:39] LABS: ANION GAP 14.8 (8-16); CARBON DIOXIDE 23.8 mmol/L (21-32); CREATININE 2.2 mg/dL (0.6-1.3)
[2020-01-10 16:55] LABS: POTASSIUM 2.6 mmol/L (3.5-5.1)
[2020-01-10] MEDS ORDERED: POTASSIUM CHLORIDE 40 MEQ, LIDOCAINE MPF 1% 25 MG in NACL 0.9% 250 ML IV ONE (17:05)
[2020-01-10] MEDS ORDERED: MAG SULF 2000 MG/WATER PREMIX 50 ML IV ONE (17:05)
--- NOTE | 2020-01-10 17:30 | NUR ---
POTASSIUM MEQ PO GIVEN ORDERED.
[2020-01-10] MEDS: hydrALAZINE 20 MG/ML VIAL IVP PRN (17:35)
--- NOTE | 2020-01-10 17:40 | NUR ---
DR. JEONG AT BEDSIDE.
[2020-01-10] MEDS ORDERED: CARVEDILOL 6.25 MG TAB PO ONE (17:59)
--- NOTE | 2020-01-10 18:00 | NUR ---
PATIENT REMAINS STABLE. NO S/S OF DISTRESS NOTED. CALL LIGHT WITHIN REACH. ABLE TO MAKE NEEDS KNOWN.
--- NOTE | 2020-01-10 19:45 | NUR ---
NOTIFIED DR. CHEUNG IN REGARDS TO POTASSIUM LIDOCAINE NOT AVAILABLE AT THIS TIME DUE TO PHARMACY UNABLE TO DELIVER SPECIFIED MEDICATION. PER DR. CHEUNG SHE WILL CHANGE THE ORDER TO Arlet DARLING. ENDORSED TO [facility] NURSE.
--- NOTE | 2020-01-10 19:52 | NUR ---
RECEIVED REPORT FROM DAY SHIFT NURSE. PATIENT IN BED RESTING. AWAKE AND ALERT. RESPIRATIONS EVEN AND UNLABORED. NO SIGNS OF DISTRESS NOTED. IV ACCESS PATENT AND INTACT. SAFETY MEASURES IN PLACE. CALL LIGHT WITHIN REACH. WILL CONTINUE TO MONITOR.
[2020-01-10 20:00] VITALS: BP 158/79
[2020-01-10] MEDS: AZITHROMYCIN 250 MG TAB PO SCH (21:13)
--- NOTE | 2020-01-10 21:15 | NUR ---
VITAL SIGNS TAKEN. SCHEDULED MEDICATIONS GIVEN. PATIENT REFUSED BLOOD SUGAR CHECK. RESPIRATIONS EVEN AND UNLABORED. DENIES ANY PAIN/DISCOMFORT AT THIS TIME. SAFETY MEASURES IN PLACE. CALL LIGHT WITHIN REACH. WILL CONTINUE TO MONITOR.
--- NOTE | 2020-01-10 22:09 | NUR ---
ROUNDS DONE. PATIENT IN BED WATCHING TV. O2 SAT 98%. NO S/SX OF DISTRESS. KEPT COMFORTABLE. CALL LIGHT WITHIN REACH. WILL CONTINUE TO MONITOR.
[2020-01-10] MEDS: POTASSIUM CHL 40 MEQ/ D5-1/2NS 1,000 ML IV SCH (23:06)
[2020-01-11] VITALS: BP 159/83
--- NOTE | 2020-01-11 00:12 | NUR ---
VITAL SIGNS STABLE. O2 SAT 98%. RESPIRATIONS EVEN AND UNLABORED. PATIENT NOT IN DISTRESS. IVF INFUSING WELL. HELPED PATIENT WITH CHARGING HIS PHONE. NO REQUESTS MADE AT THIS TIME. KEPT COMFORTABLE. CALL LIGHT WITHIN REACH. WILL CONTINUE TO MONITOR.
--- NOTE | 2020-01-11 02:04 | NUR ---
PATIENT ASLEEP. O2 SAT 98%. RESPIRATIONS EVEN AND UNLABORED. NO S/SX OF DISTRESS NOTED. WILL CONTINUE TO MONITOR.
[2020-01-11] MEDS: NACL 0.9% 1,000 ML IV SCH (03:41)
[2020-01-11 04:00] VITALS: BP 168/86
[2020-01-11 05:14] LABS: BARBITURATE, URINE NEGATIVE ng/ml (NEG <=200); BENZODIAZEPINE, URINE NEGATIVE ng/mL (NEG <=200); CANNABINOID, URINE NEGATIVE ng/mL (NEG <=50); COCAINE, URINE NEGATIVE ng/mL (NEG <=300); OPIATE, URINE NEGATIVE ng/mL (NEG <=2000); PHENCYCLIDINE SCREEN,URINE NEGATIVE ng/mL (NEG <=25)
[2020-01-11] MEDS: LEVOTHYROXINE 0.075 MG TAB PO SCH (06:16)
[2020-01-11] MEDS: BLOOD GLUCOSE MONITORING 1 DEV DEV FS SCH ×4 (06:35→21:27)
--- NOTE | 2020-01-11 07:27 | NUR ---
ENDORSED TO DAYSHIFT NURSE FOR CONTINUITY OF CARE. PATIENT IN STABLE CONDITION.
--- NOTE | 2020-01-11 07:28 | NUR ---
RECEIVED REPORT FROM NIGHT RN. PT AOX4, NO C/O PAIN, NO S/S OF ANY RESP DISTRESS, NO SOB. ON RA. CONT ON REAL ESTATE LEGAL ASSISTANT. WITH IV ON RAC 20G, IVF INFUSING WELL. KEPT CLEAN AND DRY. CALL LIGHT WITHIN REACH. WILL CONT TO MONITOR
[2020-01-11 08:00] VITALS: BP 137/63
[2020-01-11 08:06] LABS: FOLIC ACID 12.5 ng/mL (>3.0)
--- NOTE | 2020-01-11 08:06 | NUR ---
PATIENT HAS BEEN SCREENED AND CATEGORIZED MODERATE NUTRITION RISK. PATIENT WILL BE SEEN WITHIN 3-5 DAYS OF ADMISSION. 01/13/20 01/15/[address]
[2020-01-11 08:33] LABS: CARBON DIOXIDE 23.1 mmol/L (21-32); CREATININE 2.1 mg/dL (0.6-1.3); POTASSIUM 3.1 mmol/L (3.5-5.1)
[2020-01-11 08:39] LABS: BASOPHILS % (AUTO) 0.6 % (0.0-2.0); EOSINOPHILS # (AUTO) 0.2 K/uL (0-0.4); EOSINOPHILS % (AUTO) 3.9 % (0.0-4.0); HEMATOCRIT 24.4 % (36-52); HEMOGLOBIN 8.7 g/dL (12.0-18.0); LYMPHOCYTES # (AUTO) 0.8 K/uL (2.0-11.5); MEAN CORPUSCULAR HEMOGLOBIN 31 pg (27-31); MEAN CORPUSCULAR HGB CONC 36 g/dL (33-37); MONOCYTES # (AUTO) 0.4 K/uL (0.8-1.0); MONOCYTES % (AUTO) 6.9 % (1.7-9.3); NEUTROPHILS # (AUTO) 4.2 K/uL (1.8-7.7); NEUTROPHILS % (AUTO) 74.6 % (42.2-75.2); PLATELET COUNT (AUTO) 111 K/uL (140-450); RED BLOOD CELL COUNT(AUTO) 2.77 MIL/uL (4.20-6.10); RED CELL DISTRIBUTION WIDTH 14.8 % (11.6-13.7); WHITE BLOOD COUNT (AUTO) 5.6 K/uL (4.8-10.8)
--- NOTE | 2020-01-11 08:45 | NUR ---
DUE MORNING MEDS GIVEN. TOLERATED WELL
[2020-01-11 08:48] LABS: ANION GAP 16.1 (8-16); CARBON DIOXIDE 21.9 mmol/L (21-32); CREATININE 2.1 mg/dL (0.6-1.3); TOTAL BILIRUBIN 0.6 mg/dL (0.0-1.0)
[2020-01-11 08:57] LABS: MAGNESIUM 2.1 mg/dL (1.8-2.4); PHOSPHORUS 2.3 mg/dL (2.5-4.9)
[2020-01-11] MEDS: ENOXAPARIN 40 MG/0.4 ML SYR SUBQ SCH (09:00)
[2020-01-11] MEDS ORDERED: CARVEDILOL 6.25 MG TAB PO SCH (09:00)
[2020-01-11] MEDS: ZINC SULF 220 MG CAP PO SCH (09:13)
[2020-01-11] MEDS: SIMVASTATIN 20 MG TAB PO SCH (09:13)
[2020-01-11] MEDS: ASCORBIC ACID 500 MG TAB PO SCH (09:13)
[2020-01-11] MEDS: LORATADINE 10 MG TAB PO SCH (09:13)
[2020-01-11] MEDS: amLODIPine 5 MG TAB PO SCH ×2 (09:13→20:09)
[2020-01-11 09:25] LABS: CHOL/HDL RATIO 5.5 (1-4.5)
[2020-01-11] MEDS ORDERED: POTASSIUM CHLORIDE 10 MEQ TABER PO SCH (11:30)
--- NOTE | 2020-01-11 11:30 | NUR ---
BLOOD SUGAR 126. NO INSULIN COVERAGE. NO C/O PAIN, NO SOB, AFEBRILE
[2020-01-11 12:00] VITALS: BP 138/71
[2020-01-11] MEDS ORDERED: SODIUM PHOS / POTASSIUM PHOS 1 PKT PDR PO SCH (12:00)
--- NOTE | 2020-01-11 15:39 | NUR ---
PT ASLEEP IN BED. NO APPARENT DISTRESS NOTED
[2020-01-11 16:00] VITALS: BP 148/95
--- NOTE | 2020-01-11 17:25 | NUR ---
IN BED. AWAKE WATCHING TV. NO C/O PAIN, NO SOB. BLOOD SUGAR 125, NO COVERAGE
--- NOTE | 2020-01-11 19:00 | NUR ---
RECEIVED BEDSIDE REPORT FROM DAY SHIFT NURSE. PATIENT IS AWAKE, ALERT, AND COOPERATIVE. RESPIRATION EVEN UNLABORED ON ROOM AIR. NO DISTRESS NOTED. SKIN IS WARM AND DRY. IV PATENT AND INTACT. PLAN OF CARE WAS DISCUSSED. ALL SAFETY MEASURES IN PLACE. BED IS AT LOW POSITION. CALL LIGHT WITHIN REACH AND VERBALIZES ITS USE. WILL CONTINUE TO MONITOR.
--- NOTE | 2020-01-11 19:17 | NUR ---
ENDORSED TO EMBEDDED SOFTWARE PROGRAMMER NURSE FOR CONTINUITY OF CARE. IN STABLE CONDITION
[2020-01-11] MEDS: POTASSIUM CHL 40 MEQ/ D5-1/2NS 1,000 ML IV SCH (19:50)
[2020-01-11 20:00] VITALS: BP 156/96
[2020-01-11] MEDS: CARVEDILOL 6.25 MG TAB PO SCH (20:09)
[2020-01-11] MEDS: HYDROcodone/APAP 5/325 MG 1 TAB TAB PO PRN (20:10)
[2020-01-11] MEDS: AZITHROMYCIN 250 MG TAB PO SCH (20:10)
--- NOTE | 2020-01-11 21:10 | NUR ---
INITIAL ASSESSMENT DONE. VITALS WERE TAKEN. PATIENT COMPLAINING OF LEG PAIN 02/24. PRN PAIN MED ADMINISTER PER ORDER. ALSO ALL SCHEDULED MEDS WERE GIVEN PER ORDER. WILL CONTINUE TO MONITOR. Addendum: 01/11/20 at 2306 by Chloe Ochoa RN WRONG TIME. CORRECT TIME 2009
--- NOTE | 2020-01-11 21:27 | NUR ---
PATIENT BLOOD SUGAR 182. PATIENT REFUSED INSULIN. PER PATIENT HIS NOT DIABETIC AND IF HE TAKES INSULIN IT WILL MESSED UP HIS KIDNEY. EDUCATED PATIENT REGARDING INSULIN AND HOW PANCREASE WORKS. VERBALIZE UNDERSTANDING BUT PATIENT STILL REFUSED X2. WILL NOTIFY MD. WILL CONTINUE TO MONITOR.
[2020-01-11] MEDS ORDERED: VANCOMYCIN PER PHARMACY MC PRN (22:35)
--- NOTE | 2020-01-11 23:06 | NUR ---
CHECKED PATIENT. PATIENT IS WATCHING TV. RESPIRATION EVEN UNLABORED ON ROOM AIR. NO DISTRESS NOTED. WILL CONTINUE TO MONITOR.
[2020-01-11] MEDS ORDERED: VANCOMYCIN HCL 1.25 GM in DEXTROSE 5% 250 ML IV ONE (23:15)
[2020-01-11] MEDS ORDERED: VANCOMYCIN 500 MG VIAL ONE (23:50)
[2020-01-11] MEDS ORDERED: VANCOMYCIN 1,000 MG VIAL ONE (23:50)
[2020-01-12] VITALS: BP 152/92
--- NOTE | 2020-01-12 | NUR ---
VITALS WERE TAKEN. PATIENT IN STABLE CONDITION. FIRST DOSE OF VANCO 1.25GM GIVEN PER MD. DOUBLE CHECKED WITH CHARGE NURSE DANAE FOR DOSE. WILL CONTINUE TO MONITOR.
--- NOTE | 2020-01-12 01:47 | NUR ---
CHECKED PATIENT. PATIENT SLEEPING RESPIRATION EVEN UNLABORED ON ROOM AIR. NO DISTRESS NOTED. WILL CONTINUE TO MONITOR.
[2020-01-12] MEDS: NACL 0.9% 1,000 ML IV SCH (03:41)
[2020-01-12 04:00] VITALS: BP 117/83
--- NOTE | 2020-01-12 04:05 | NUR ---
VITALS WERE TAKEN. PATIENT IN STABLE CONDITION. NO DISTRESS NOTED.
[2020-01-12] MEDS: HYDROcodone/APAP 5/325 MG 1 TAB TAB PO PRN (05:58)
[2020-01-12] MEDS: LEVOTHYROXINE 0.075 MG TAB PO SCH (05:58)
--- NOTE | 2020-01-12 05:58 | NUR ---
PATIENT COMPLAINED OF LEG PAIN 6/10. PRN PAIN MED ADMINISTER PER ORDER. WILL CONTINUE TO MONITOR.
[2020-01-12] MEDS: BLOOD GLUCOSE MONITORING 1 DEV DEV FS SCH ×4 (05:59→20:39)
--- NOTE | 2020-01-12 07:08 | NUR ---
ENDORSED PATIENT TO DAY SHIFT NURSE. PATIENT IN STABLE CONDITION.
--- NOTE | 2020-01-12 07:09 | NUR ---
RECEIVED REPORT FROM CARPENTER WOODEN TANK ERECTING NURSE VINH FOR CONTINUITY OF CARE. PT IN STABLE CONDITION. RESPIRATIONS EVEN AND UNLABORED, ROOM AIR. IV IN TACT AND PATENT. SAFETY MEASURES IN PLACE. BED IN LOW POSITION. BED ALARM ON. CALL LIGHT AT BEDSIDE. WILL CONTINUE TO MONITOR.
[2020-01-12 08:00] VITALS: BP 163/80
[2020-01-12 08:39] LABS: BASOPHILS % (AUTO) 0.7 % (0.0-2.0); EOSINOPHILS # (AUTO) 0.2 K/uL (0-0.4); EOSINOPHILS % (AUTO) 6.8 % (0.0-4.0); HEMATOCRIT 23.4 % (36-52); HEMOGLOBIN 8.3 g/dL (12.0-18.0); LYMPHOCYTES # (AUTO) 0.6 K/uL (2.0-11.5); LYMPHOCYTES % (AUTO) 18.2 % (20.5-51.1); MEAN CORPUSCULAR HEMOGLOBIN 31 pg (27-31); MEAN CORPUSCULAR HGB CONC 36 g/dL (33-37); MEAN CORPUSCULAR VOLUME 87.3 fL (80-94); MONOCYTES # (AUTO) 0.3 K/uL (0.8-1.0); MONOCYTES % (AUTO) 8.8 % (1.7-9.3); NEUTROPHILS # (AUTO) 2.2 K/uL (1.8-7.7); NEUTROPHILS % (AUTO) 65.5 % (42.2-75.2); PLATELET COUNT (AUTO) 101 K/uL (140-450); RED BLOOD CELL COUNT(AUTO) 2.67 MIL/uL (4.20-6.10); RED CELL DISTRIBUTION WIDTH 14.5 % (11.6-13.7); WHITE BLOOD COUNT (AUTO) 3.4 K/uL (4.8-10.8)
[2020-01-12] MEDS: ENOXAPARIN 40 MG/0.4 ML SYR SUBQ SCH (09:00)
[2020-01-12] MEDS: ACETAMINOPHEN 325 MG TAB PO PRN ×2 (09:20→21:35)
[2020-01-12] MEDS: ASCORBIC ACID 500 MG TAB PO SCH (09:20)
[2020-01-12] MEDS: CARVEDILOL 6.25 MG TAB PO SCH ×2 (09:20→20:32)
[2020-01-12] MEDS: LORATADINE 10 MG TAB PO SCH (09:21)
[2020-01-12] MEDS: SIMVASTATIN 20 MG TAB PO SCH (09:21)
[2020-01-12] MEDS: ZINC SULF 220 MG CAP PO SCH (09:21)
[2020-01-12] MEDS: amLODIPine 5 MG TAB PO SCH ×2 (09:22→20:32)
--- NOTE | 2020-01-12 09:24 | NUR ---
GAVE ORDERED DUE MEDICATIONS AT THIS TIME. PATIENT TOLERATED WELL. BED IN LOW POSITION. CALL LIGHT AT BEDSIDE. WILL CONTINUE TO MONITOR.
[2020-01-12 09:50] LABS: CREATININE,URINE RANDOM 35 mg/dL (30-125); URINE SODIUM, RANDOM 75 mmol/l (40-220)
--- NOTE | 2020-01-12 10:11 | NUR ---
Quality Lead Note: SW attempted to reach patient's son, Hung Rivera [phone] to complete assessment. SW left . SW will follow up.
[2020-01-12 11:52] LABS: ALBUMIN 2.7 g/dL (3.4-5.0); ANION GAP 14.6 (8-16); CARBON DIOXIDE 22.5 mmol/L (21-32); MAGNESIUM 1.8 mg/dL (1.8-2.4); PHOSPHORUS 2.8 mg/dL (2.5-4.9); POTASSIUM 3.1 mmol/L (3.5-5.1); TOTAL BILIRUBIN 0.3 mg/dL (0.0-1.0)
[2020-01-12 12:00] VITALS: BP 124/82
--- NOTE | 2020-01-12 12:09 | NUR ---
DC PLANNIN YRS OLD MALE PATIENT WAS ADMITTED FROM HOME WITH A DX OF PNA, R/O COVID AND HYPOKALEMIA K+ . PATIENT HAS A HX OF DM, HTN, HLD, AND CKD . CXR MILD RETROCARDIAC INFILTRATES/ATELECTASIS , STARTED IV AZITHROMYCIN ,ROCEPHIN , ZINC TABLET BLOOD, SPUTUM AND URINE CULTURE PENDING . INFLUENZA A&B AND COVID NEGATIVE. PULMO, AND ID CONSULTED . DC PLAN PER MD RECOMMENDATION CM TO FOLLOW.
--- NOTE | 2020-01-12 12:46 | NUR ---
GAVE LUNCH TRAY AT THIS TIME. PT IN STABLE CONDITION. BED IN LOW POSITION. BED ALARM ON. CALL LIGHT AT BEDSIDE. WILL CONTINUE TO MONITOR.
--- NOTE | 2020-01-12 14:18 | NUR ---
GAVE REPORT TO DAY SHIFT NURSE ALEKSANDR FOR CONTINUITY OF CARE. PATIENT IN STABLE CONDITION.
--- NOTE | 2020-01-12 14:20 | NUR ---
RECEIVED BEDSIDE REPORT FROM DAY SHIFT NURSE, FRANCISCO. PATIENT IS AWAKE, ALERT, AND COOPERATIVE, AAOX4. RESPIRATION EVEN UNLABORED ON ROOM AIR WITH O2 STAT OF 95%. NO DISTRESS NOTED. SKIN IS WARM AND DRY. IV PATENT AND INTACT WITH LEFT FORM 20G SALINELOCKED AND RIGHT AC 20G KCL-D5 RUNNING AT 10ML/HR. PT. VERBALIZES NO PAIN. PLAN OF CARE WAS DISCUSSED. ALL SAFETY MEASURES IN PLACE. BED IS AT LOW POSITION. CALL LIGHT WITHIN REACH AND VERBALIZES ITS USE. WILL CONTINUE TO MONITOR.
[2020-01-12] MEDS ORDERED: POTASSIUM CHLORIDE 10 MEQ TABER PO SCH (15:00)
[2020-01-12 16:00] VITALS: BP 150/84
--- NOTE | 2020-01-12 16:30 | NUR ---
BLOOD GLUCOSE CHECK WITH VALUE OF 120. NO INSULIN COVERAGE NEEDED. WILL CONTINUE TO MONITOR.
--- NOTE | 2020-01-12 16:45 | NUR ---
EVENING MEDICATIONS GIVEN. V/S TAKEN WITH BP 150/84, HR 77, O2 STAT 96%, TEMP 98.9F, RR 18, AND PT. VERBALIZING NO PAIN. WILL CONTINUE TO MONITOR.
--- NOTE | 2020-01-12 19:25 | NUR ---
ENDORSED TO ROCK CRUSHING MACHINE OPERATOR NURSE, VINH, FOR CONTINUITY OF CARE.
[2020-01-12] MEDS: POTASSIUM CHL 40 MEQ/ D5-1/2NS 1,000 ML IV SCH (19:50)
[2020-01-12 20:00] VITALS: BP 159/90
--- NOTE | 2020-01-12 20:00 | NUR ---
INITIAL ASSESSMENT DONE. VITALS WERE TAKEN. PATIENT IN STABLE CONDITION. WILL CONTINUE TO MONITOR.
[2020-01-12] MEDS: AZITHROMYCIN 250 MG TAB PO SCH (20:31)
--- NOTE | 2020-01-12 20:39 | NUR ---
ALL SCHEDULED MEDS WERE GIVEN PER ORDER. PATIENT BLOOD SUGAR 152 AND REFUSED INSULIN. EDUCATED AND EXPLAINED RISK AND BENEFITS. X2 STILL REFUSED. WILL NOTIFY MD. WILL CONTINUE TO MONITOR.
[2020-01-12] MEDS ORDERED: VANCOMYCIN 750 MG in NACL 0.9% 250 ML IV SCH (21:00)
--- NOTE | 2020-01-12 21:35 | NUR ---
PATIENT COMPLAINED OF MILD LEG PAIN 4. PRN TYLENOL GIVEN PER ORDER. WILL CONTINUE TO MONITOR.
--- NOTE | 2020-01-12 21:45 | NUR ---
MD IS AWARE OF PATIENT REFUSING INSULIN. AWAITING FOR NEW ORDERS.
--- NOTE | 2020-01-12 22:29 | NUR ---
ENDORSED PATIENT TO BORIS RN FOR CONTINUITY OF CARE. PATIENT IN STABLE CONDITION.
--- NOTE | 2020-01-12 22:30 | NUR ---
RECEIVED PT ON BED, AAOX4, ABLE TO MAKE NEEDS KNOWN, TOLERABLE PAIN / TO RT LEG AT THIS TIME, VANCOMYCIN IVPB INFUSING WELL, SAFETY MEASURES IN PLACE, PT VOIDED FREELY PER URINAL WITH 500ML CLEAR YELLOW URINE, CALL LIGHT WITHIN REACH, MONITORED CLOSELY.
[2020-01-13] VITALS: BP 174/86
[2020-01-13] MEDS: hydrALAZINE 20 MG/ML VIAL IVP PRN (00:50)
--- NOTE | 2020-01-13 00:50 | NUR ---
PT AWAKE, BP-174/84, HR-71, DENIES CHEST PAIN, NO SOB NOTED, MEDICATED PRN WITH HYDRALAZINE IVP, WILL RECHECKED BP IN 1 HOUR, MONITORED CLOSELY.
--- NOTE | 2020-01-13 01:57 | NUR ---
BP RECHECKED-154/73, HR-74, DENIES CHEST PAIN, PT UNABLE TO SLEEP DUE TO ANXIETY, MEDICATED PRN WITH ATIVAN IVP, MONITORED CLOSELY.
[2020-01-13] MEDS: NACL 0.9% 1,000 ML IV SCH (03:41)
[2020-01-13 04:00] VITALS: BP 162/86
--- NOTE | 2020-01-13 04:00 | NUR ---
PT SLEEPING, EASILY AROUSABLE, VITAL SIGNS TAKEN, BP SLIGHTLY ELEVATED-162/86, HR-67, DENIES CHEST PAIN, NO SOB NOTED, IVF INFUSING WELL AT TKO RATE, PT WENT BACK TO SLEEP, MONITORED CLOSELY.
[2020-01-13] MEDS: LEVOTHYROXINE 0.075 MG TAB PO SCH (06:09)
--- NOTE | 2020-01-13 06:10 | NUR ---
BLOOD SUGAR CHECKED WITH 114 RESULT, DUE PO SYNTHROID ADMINISTERED, DENIES ANY PAIN, IVF INFUSING WELL.
[2020-01-13] MEDS: BLOOD GLUCOSE MONITORING 1 DEV DEV FS SCH ×2 (06:51→11:31)
[2020-01-13 07:45] LABS: BASOPHILS % (AUTO) 0.6 % (0.0-2.0); EOSINOPHILS # (AUTO) 0.2 K/uL (0-0.4); EOSINOPHILS % (AUTO) 6.6 % (0.0-4.0); HEMATOCRIT 24.7 % (36-52); HEMOGLOBIN 8.6 g/dL (12.0-18.0); LYMPHOCYTES # (AUTO) 0.8 K/uL (2.0-11.5); LYMPHOCYTES % (AUTO) 21.8 % (20.5-51.1); MEAN CORPUSCULAR HEMOGLOBIN 31 pg (27-31); MEAN CORPUSCULAR HGB CONC 35 g/dL (33-37); MEAN CORPUSCULAR VOLUME 88.7 fL (80-94); MONOCYTES # (AUTO) 0.2 K/uL (0.8-1.0); MONOCYTES % (AUTO) 6.9 % (1.7-9.3); NEUTROPHILS # (AUTO) 2.3 K/uL (1.8-7.7); NEUTROPHILS % (AUTO) 64.1 % (42.2-75.2); PLATELET COUNT (AUTO) 122 K/uL (140-450); RED BLOOD CELL COUNT(AUTO) 2.79 MIL/uL (4.20-6.10); RED CELL DISTRIBUTION WIDTH 14.4 % (11.6-13.7); WHITE BLOOD COUNT (AUTO) 3.5 K/uL (4.8-10.8)
--- NOTE | 2020-01-13 07:53 | NUR ---
PT SLEEPING, NO SIGNS OF DISTRESS, REPORT GIVEN TO LOUIS DANIEL FOR CONTINUITY OF CARE.
--- NOTE | 2020-01-13 07:54 | NUR ---
RECEIVED REPORT FROM LOUIS ESCALANTE. PATIENT ASLEEP, RESPIRATORY EVEN AND UNLABORED. EASILY AROUSABLE BY NAME OR TOUCH. SKIN WARM AND DRY TO TOUCH. INTRODUCED SELF. IV INTACT AND PATENT TO RIGHT AC AND LEFT AC. CALL LIGHT WITHIN REACH. PLANS OF CARE DISCUSSED. NO DISTRESS NOTED.
[2020-01-13 08:00] VITALS: BP 154/88
[2020-01-13 08:10] LABS: ANION GAP 15.1 (8-16); CARBON DIOXIDE 22.2 mmol/L (21-32); CREATININE 2.1 mg/dL (0.6-1.3); POTASSIUM 3.3 mmol/L (3.5-5.1)
[2020-01-13 08:24] LABS: MAGNESIUM 1.7 mg/dL (1.8-2.4)
[2020-01-13] MEDS: LORATADINE 10 MG TAB PO SCH (08:34)
[2020-01-13] MEDS: ASCORBIC ACID 500 MG TAB PO SCH (08:35)
[2020-01-13] MEDS: amLODIPine 5 MG TAB PO SCH (08:36)
[2020-01-13] MEDS: ENOXAPARIN 40 MG/0.4 ML SYR SUBQ SCH (08:36)
[2020-01-13] MEDS: CARVEDILOL 6.25 MG TAB PO SCH (08:36)
[2020-01-13] MEDS: ZINC SULF 220 MG CAP PO SCH (08:36)
[2020-01-13] MEDS: SIMVASTATIN 20 MG TAB PO SCH (08:36)
[2020-01-13] MEDS: ACETAMINOPHEN 325 MG TAB PO PRN (09:11)
[2020-01-13] MEDS ORDERED: ASCO1CAP75 PO ×2 (09:18→10:43)
[2020-01-13] MEDS ORDERED: AZIT250T3 PO ×2 (09:18→10:43)
[2020-01-13] MEDS ORDERED: METO25TA PO ×2 (10:24→10:43)
[2020-01-13] MEDS ORDERED: LOSA100T51 PO ×2 (10:24→10:43)
[2020-01-13] MEDS ORDERED: SIMV20TA1 PO (10:24)
[2020-01-13] MEDS ORDERED: MAGNESIUM OXIDE 400 MG TAB PO SCH (10:30)
--- NOTE | 2020-01-13 11:00 | NUR ---
PATIENT REMAINS STABLE NO DISTRESS NOTED.
[2020-01-13] MEDS ORDERED: CHLO118S2 TP (11:02)
[2020-01-13] MEDS ORDERED: MUPI2CRE22 NS (11:02)
--- NOTE | 2020-01-13 11:45 | NUR ---
PATIENT REFUSED INSULIN 2 UNIT COVERAGE ORDERED FOR BG 172. EDUCATED PATIENT IN REGARDS TO BENEFITS OF MEDICATION. PT VERBALIZED UNDERSTANDING.
[2020-01-13 12:00] VITALS: BP 135/81
[2020-01-13] MEDS ORDERED: MUPIROCIN CA NASAL 2% 1GM TUBE NS SCH (12:00)
[2020-01-13] MEDS ORDERED: CHLORHEXADINE GLUC 2% CLOTH TP SCH (12:00)
--- NOTE | 2020-01-13 14:05 | NUR ---
PATIENT IN STABLE CONDITION. PATIENT TRANSPORTED VIA WHEELCHAIR TO THE [facility]. PATIENT DISCHARGE TO HOME VIA PRIVATE VEHICLE, PICKED UP BY SON. ALL DISCHARGE INSTRUCTIONS AND ALL BELONGINGS GIVEN TO PATIENT. PATIENT VERBALIZED UNDERSTANDING. ALL IV REMOVED AND ID BANDS REMOVED.
== END 2020-01-13 14:05 | disposition home or self-care (01) | DRG 720 ==
LOC: MED 00:37 → EEVIPCON 00:37 → MTU 03:45
PROVIDERS: ADMIT General Practice; ATTEND General Practice
DX: A41.9 Sepsis, unspecified organism (principal); J96.01 Acute respiratory failure with hypoxia; I21.A1 Myocardial infarction type 2; N17.0 Acute kidney failure with tubular necrosis; J18.9 Pneumonia, unspecified organism; E11.22 Type 2 diabetes mellitus with diabetic chronic kidney disease; N18.4 Chronic kidney disease, stage 4 (severe); I12.9 Hypertensive chronic kidney disease with stage 1 through stage 4 chronic kidney disease, or unspecified chronic kidney disease; E03.9 Hypothyroidism, unspecified; E78.00 Pure hypercholesterolemia, unspecified; E87.6 Hypokalemia; J98.11 Atelectasis; E83.39 Other disorders of phosphorus metabolism; D63.8 Anemia in other chronic diseases classified elsewhere; E83.42 Hypomagnesemia; E44.1 Mild protein-calorie malnutrition; Z99.3 Dependence on wheelchair; Z80.42 Family history of malignant neoplasm of prostate; Z82.49 Family history of ischemic heart disease and other diseases of the circulatory system; Z03.818 Encounter for observation for suspected exposure to other biological agents ruled out; Z68.23 Body mass index [BMI] 23.0-23.9, adult
CPT/HCPCS: 36415; 36600; 71045; 76770; 80048; 80053; 80305; 81001; 82550; 82570; 82607; 82728; 82746; 82803; 82948; 83036; 83540; 83605; 83615; 83690; 83735; 83880; 84100; 84300; 84443; 84484; 85025; 85045; 85379; 85384; 85610; 85651; 85730; 86140; 87040; 87081; 87086; 87420; 87804; 93005; 96365; 96375; 99291; J0360; J0456; J0696; J1650; J1815; J2001; J2060; J2270; J3370; J3475; J3480; J7030; J7060; Q0092

== ENCOUNTER 2020-05-27 02:00 | Emergency (ER) | payer MEDICAID, SELFPAY ==
[~2020-05-27] VITALS: Ht 165.1 cm; Wt 69.4 kg
[~2020-05-27 02:00] MED LIST changes: -AMLO5TAB PO; +ASCO1CAP75 PO; +AZIT250T3 PO; +CHLO118S2 TP; -LORA10TA19 PO; +LOSA100T51 PO; +METO25TA PO; +MUPI2CRE22 NS
--- NOTE | 2020-05-27 02:15 | NUR ---
PT BROUGHT TO BED 6 BY HIS OWN WHEELCHAIR
--- NOTE | 2020-05-27 02:18 | NUR ---
ERMD AT BEDSIDE EXAMINING PT
[2020-05-27 02:35] VITALS: BP 240/110
[2020-05-27] MEDS ORDERED: CLONIDINE HYDROCHLORIDE 0.1 MG TAB PO ONE ×4 (02:35→04:35)
[2020-05-27] MEDS ORDERED: cephALEXin 500 MG CAP PO ONE (02:40)
--- NOTE | 2020-05-27 02:45 | NUR ---
EKG PERFORMED AT BEDSIDE. SINUS RHYTHM @ 75
--- NOTE | 2020-05-27 02:45 | NUR ---
EKG BEING PERFORMED AT BEDSIDE
[2020-05-27 02:49] LABS: BASOPHILS % (AUTO) 0.7 % (0.0-2.0); EOSINOPHILS # (AUTO) 0.2 K/uL (0-0.4); HEMATOCRIT 30.6 % (36-52); HEMOGLOBIN 10.9 g/dL (12.0-18.0); LYMPHOCYTES # (AUTO) 1.2 K/uL (2.0-11.5); LYMPHOCYTES % (AUTO) 24.2 % (20.5-51.1); MEAN CORPUSCULAR HEMOGLOBIN 31 pg (27-31); MEAN CORPUSCULAR HGB CONC 36 g/dL (33-37); MEAN CORPUSCULAR VOLUME 85.8 fL (80-94); MONOCYTES # (AUTO) 0.5 K/uL (0.8-1.0); MONOCYTES % (AUTO) 9.1 % (1.7-9.3); NEUTROPHILS # (AUTO) 3.1 K/uL (1.8-7.7); PLATELET COUNT (AUTO) 130 K/uL (140-450); RED BLOOD CELL COUNT(AUTO) 3.57 MIL/uL (4.20-6.10); RED CELL DISTRIBUTION WIDTH 14.2 % (11.6-13.7)
--- NOTE | 2020-05-27 02:56 | NUR ---
PT C/O HEADACHE 12/25 X 1 DAY, DENIES DIZZINESS, NO ISSUES WITH VISION. NO N/V/D, AFEBRILE. PT HAS TWO SPIDER BITES TO HIS LOWER BACK THAT IS RED AND SWOLLEN AND ANOTHER TO BACK OF L ARM WITH MILD REDNESS. DENIES ANY NUMBNESS OR TINGLING TO EXTREMITIES, HAND GLASSWARE ENGRAVER AND FOOT PUSHES EQUAL, FACE SYMETRICAL. BED IN LOWEST POSITION AND SIDERAIL UP X 1 NKA HX - HTN, STENT PLACEMENT (2-3 YRS AGO)
[2020-05-27] MEDS ORDERED: CLONIDINE HYDROCHLORIDE 0.1 MG TAB ONE (02:59)
--- NOTE | 2020-05-27 03:00 | NUR ---
PT TAKEN TO CT VIA WHEELCHAIR
[2020-05-27 03:06] LABS: APPEARANCE,URINE CLOUDY (CLEAR); BILIRUBIN,URINE NEGATIVE (NEGATIVE); BLOOD, URINE 2+ (NEGATIVE); COLOR,URINE YELLOW (YELLOW); LEUKOCYTE ESTERASE ,URINE 1+ (NEGATIVE); NITRITE, URINE NEGATIVE (NEGATIVE); UGLUCOSE 2+ (NEGATIVE)
[2020-05-27 03:06] LABS: ALBUMIN 3.6 g/dL (3.4-5.0); ANION GAP 14.2 (8-16); CARBON DIOXIDE 26.8 mmol/L (21-32); CREATININE 2.6 mg/dL (0.6-1.3); TOTAL BILIRUBIN 0.5 mg/dL (0.0-1.0)
[2020-05-27 03:17] LABS: WBC,URINE 60-80 /HPF (0-5)
[2020-05-27 03:18] LABS: RBC,URINE 11-20 (MOD) /HPF (0-5)
--- NOTE | 2020-05-27 03:20 | NUR ---
PT RETURNED FROM CT
--- NOTE | 2020-05-27 03:28 | NUR ---
X-RAY AT BEDSIDE
[2020-05-27] MEDS ORDERED: POTASSIUM CHLORIDE 10 MEQ TABER PO ONE (03:45)
[2020-05-27] MEDS ORDERED: IBUPROFEN 400 MG TAB PO ONE (04:00)
[2020-05-27] MEDS ORDERED: METOPROLOL SUCCINATE 50 MG TABER PO SCH (04:40)
--- NOTE | 2020-05-27 04:45 | NUR ---
PT RESTING, REMAINS ON BEDSIDE MONITOR. HEADACHE HAS IMPROVED. WILL CONTINUE TO MONITOR B/P
[2020-05-27 06:05] VITALS: BP 177/98
--- NOTE | 2020-05-27 06:15 | NUR ---
Patient discharged with v/s stable. Written and verbal after care instructions given and explained. Patient alert, oriented and verbalized understanding of instructions. Wheel Chair Assisted with to home. All questions addressed prior to discharge. ID band removed. Patient advised to follow up with PMD. Rx of CLONIDINE, KEFLEX, AND METOPROLOL given. Patient educated on indication of medication including possible reaction and side effects. Opportunity to ask questions provided and answered.
--- NOTE | 2020-05-29 16:30 | NUR ---
Urine culture received from lab. Culture and sensitivity received and shown to Dr. Coronado. New Rx for Augmentin 875mg BID x 10 days received. Patient called and given culture results. Spoke with patient to obtain pharmacy preference. New Rx called into [facility] pharmacy. Copy of C&S placed in discrepancy folder.
== END 2020-05-27 06:05 | disposition home or self-care (01) ==
LOC: MED 02:00
DX: I16.0 Hypertensive urgency (principal); I15.9 Secondary hypertension, unspecified; R51 Headache; L03.312 Cellulitis of back [any part except buttock and flank]; E87.6 Hypokalemia; N39.0 Urinary tract infection, site not specified; N28.9 Disorder of kidney and ureter, unspecified; E11.9 Type 2 diabetes mellitus without complications; E07.9 Disorder of thyroid, unspecified; Z79.899 Other long term (current) drug therapy
CPT/HCPCS: 36415; 70450; 71045; 80053; 81001; 84484; 85025; 87086; 87186; 93005; 99285; Q0092

== ENCOUNTER 2020-12-05 11:50 | Emergency (ER) | payer MEDICAID ==
[~2020-12-05] VITALS: Ht 165.1 cm; Wt 73.5 kg
[~2020-12-05 11:50] MED LIST changes: -ASCO1CAP75 PO; -AZIT250T3 PO; +CARV12.5 PO; -CHLO118S2 TP; +FURO-570 PO; +LACT10CA PO; -LOSA100T51 PO; -METO25TA PO; -MUPI2CRE22 NS; +NIFE60TE5 PO; +NITR100C7 PO; +POTA8TER12 PO
[2020-12-05 12:02] VITALS: BP 139/89
--- NOTE | 2020-12-05 12:05 | NUR ---
PT TAKEN TO BED 08 VIA W/C.
--- NOTE | 2020-12-05 13:00 | NUR ---
PATIENT TAKEN TO XRAY VIA GURNEY
--- NOTE | 2020-12-05 13:36 | NUR ---
55 YEAR OLD MALE COMPLAINS OF CONSTIPATION X 4 DAYS. PT DENIES PAIN, BUT THAT HE HAS PRESSURE FEELING IN ABDOMINAL. PT DENIES N/V. PT STATES THAT HE HAS BEEN CONSISTENTLY TAKING NORCO TO MANAGE CHRONIC PAIN. PT AOX4, BREATHING EVEN AND UNLABORED, SKIN WARM AND DRY. BED IN LOWEST POSITION, LOCKED, BED RAIL UPX1. PMH - HTN, HYPOTHYROID ALLERGIES - AMOXICILLIN, CLAVULANIC ACID
[2020-12-05] MEDS ORDERED: ONDA4TAB PO (13:46)
[2020-12-05] MEDS ORDERED: MAGN1.7529 PO (13:46)
[2020-12-05] MEDS ORDERED: FLEMIN RC (13:46)
[2020-12-05] MEDS ORDERED: MIRABULK PO (13:46)
[2020-12-05 14:48] VITALS: BP 134/88
--- NOTE | 2020-12-05 14:49 | NUR ---
Patient discharged with v/s stable. Written and verbal after care instructions given and explained. Patient alert, oriented and verbalized understanding of instructions. Wheel Chair Assisted with to car. All questions addressed prior to discharge. ID band removed. Patient advised to follow up with PMD. Rx of mineral oil, magnesium citrate, polythylene glycol, and ondansetron given. Patient educated on indication of medication including possible reaction and side effects. Opportunity to ask questions provided and answered.
== END 2020-12-05 14:49 | disposition home or self-care (01) ==
LOC: MED 11:50
DX: K59.00 Constipation, unspecified (principal); I10 Essential (primary) hypertension; E07.9 Disorder of thyroid, unspecified; Z87.448 Personal history of other diseases of urinary system; Z88.5 Allergy status to narcotic agent; Z88.8 Allergy status to other drugs, medicaments and biological substances
CPT/HCPCS: 74022; 99283

== ENCOUNTER 2023-01-14 23:26 | Emergency (ER) | payer OTHER, MEDICAID ==
[~2023-01-14] VITALS: Ht 165.1 cm; Wt 70.3 kg
[~2023-01-14 23:26] MED LIST changes: +FLEMIN RC; +MAGN296S70 PO; +MIRABULK PO; +ONDA4TAB PO; +POTA8TAB19 PO; -POTA8TER12 PO; +SIMV-372 PO; -SIMV20TA1 PO
[2023-01-14 23:38] VITALS: BP 182/82
--- NOTE | 2023-01-14 23:38 | NUR ---
Patient BIB by BLS from home. C/O constipation x 1 day. Per reported, patient had constipation one day, pain 10/10. PMHx: HTN,DM, HLD and Heart attack
--- NOTE | 2023-01-15 00:29 | NUR ---
PT HAD A BM ON SELF. CLEANED UP AND GIVEN CLEAN CLOTHES.
--- NOTE | 2023-01-15 02:55 | NUR ---
PT TAKEN TO BED 11
--- NOTE | 2023-01-15 02:57 | NUR ---
Dr. Chen examining patient.
--- NOTE | 2023-01-15 04:50 | NUR ---
X-Ray at bedside.
[2023-01-15] MEDS ORDERED: MAGN296S70 PO (05:11)
[2023-01-15] MEDS ORDERED: MIRABULK PO (05:11)
--- NOTE | 2023-01-15 05:29 | NUR ---
Called household appliances service technician for [employer].
[2023-01-15 05:30] VITALS: BP 155/86
--- NOTE | 2023-01-15 05:33 | NUR ---
dPatient discharged with v/s stable. Written and verbal after care instructions given and explained. Patient alert, oriented and verbalized understanding of instructions. Ambulatory with steady gait. All questions addressed prior to discharge. ID band removed. Patient advised to follow up with PMD. Rx of magnesium and miralax given. Patient educated on indication of medication including possible reaction and side effects. Opportunity to ask questions provided and answered.pt left with his belongings.
== END 2023-01-15 05:33 | disposition home or self-care (01) ==
LOC: MED 23:26
DX: K59.00 Constipation, unspecified (principal); E03.9 Hypothyroidism, unspecified; N18.9 Chronic kidney disease, unspecified; I10 Essential (primary) hypertension; Z88.1 Allergy status to other antibiotic agents; Z88.8 Allergy status to other drugs, medicaments and biological substances; Z79.899 Other long term (current) drug therapy
CPT/HCPCS: 74022; 99283; Q0092

== ENCOUNTER 2023-01-17 11:28 | Emergency (ER) | payer OTHER, MEDICAID ==
[~2023-01-17] VITALS: Ht 165.1 cm; Wt 72.6 kg
--- NOTE | 2023-01-17 11:32 | NUR ---
BIBA BLS TO ER BED 12
[2023-01-17 11:34] VITALS: BP 192/113
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
--- NOTE | 2023-01-17 14:50 | NUR ---
PT AT BEDSIDE
--- NOTE | 2023-01-17 15:45 | NUR ---
SPOKE WITH AAKASH- PHYSICAL THERAPIST, WHO REPORTS MEETING WITH PT AND COMPLETING PT EVAL. AAKASH REPORTS PT DOES NOT MEET CRITERIA FOR SNF PLACEMENT. P THERAPIST RECOMMENDING HH. SARAH MET WITH PT AT BEDSIDE TO PROVIDE PT WITH [facility] RESOURCES, DEPARTMENT OF [employer] AND CAREGIVING RESOURCES. EXPLAINED TO PT THAT HE DOES NOT MEET CRITERIA FOR SNF PLACEMENT HOWEVER, CM WILL ARRANGE FOR HH SERVICES. PT UPSET AND REPORTS THAT HE DOES NOT HAVE A HOME SO HOME HEALTH SERVICES WOULD NOT SUFFICE. PT THEN RETRACTED AND REPORTS HE DOES HAVE A HOME AND HIS DAUGHTER AIDS IN SHOWERING HOWEVER, DOES NOT PROVIDE THE CARE HE BELIEVES HE SHOULD. SW EXPLAINED BARRIERS IN SNF HE DOES NOT MEET CRITERIA. PT REPORTS HE DOESN'T KNOW IF HIS DAUGHTER WILL ALLOW FOR HH AGENCY TO COME INTO HOME. ENCOURAGED PT TO CALL HIS DAUGHTER AND NOTIFY HER THAT [facility] WILL ARRANGE FOR HH. PT REPORTS BEING IN THE PROCESS OF OBTAINING [facility]HSS HOURS AND IS WORKING W/ [facility] SW IN GETTING APPLICATION PROCESSED. SARAH ENDORSED TO ED NURSE THAT ORDER FOR HH PT, HOME SAFETY EVAL AND NURSE CARE NEEDS TO BE ENTERED SO THAT CM CAN SEND TO INSURANCE. PT NOTIFIED THAT HH AGENCY WILL BE IN CONTACT WITH HIM WITHIN 48-72 HRS.
--- NOTE | 2023-01-17 16:19 | NUR ---
PER CASE MANAGEMENT AND PT, PATIENT CLEARED FOR WALKING STEADY WITH WALKER. PT REPORTS HAVING WALKER AT HOME. PER CASE MANAGEMENT, WILL FOLLOW UP WITH PATIENT TOMORROW FOR HOME HEALTH PT EVAL WITH SAFETY EVAL. PT CLEARED FOR DC AT THIS TIME. PT AWARE OF DISPO AND PLAN.
--- NOTE | 2023-01-17 16:29 | NUR ---
PT CALLING SON FOR PICKUP
[2023-01-17 16:30] VITALS: BP 162/95
--- NOTE | 2023-01-17 16:36 | NUR ---
CALLED PT'S SON MEGGAN, LEFT VOICE MAIL
--- NOTE | 2023-01-17 16:48 | NUR ---
Patient discharged with v/s stable. Written and verbal after care instructions given and explained. Patient verbalized understanding. Wheel Chair Assisted with to car. All questions addressed prior to discharge. Advised to follow up with PMD.
== END 2023-01-17 16:47 | disposition home or self-care (01) ==
LOC: MED 11:28
DX: G89.29 Other chronic pain (principal); Z74.09 Other reduced mobility; F41.9 Anxiety disorder, unspecified; E11.9 Type 2 diabetes mellitus without complications; I10 Essential (primary) hypertension; E78.5 Hyperlipidemia, unspecified; Z86.39 Personal history of other endocrine, nutritional and metabolic disease; Z87.448 Personal history of other diseases of urinary system; Z79.899 Other long term (current) drug therapy; Z79.2 Long term (current) use of antibiotics; Z88.0 Allergy status to penicillin; Z88.1 Allergy status to other antibiotic agents
CPT/HCPCS: 99283

== ENCOUNTER 2023-03-09 06:40 | Emergency (ER) | payer OTHER, MEDICAID ==
[~2023-03-09] VITALS: Ht 165.1 cm; Wt 68.0 kg
--- NOTE | 2023-03-09 07:00 | NUR ---
58YR OLD M BIB EMS C/O RIGHT FLANK/RIGHT LEG PAIN AND NUMBNESS/TINGLING X TODAY. PT STATED VOMITING X5 THIS AM. PT DENIES CP OR SOB. 8/10 STABBING LEG PAIN. PT IS AXO4 ON BEDSIDE FAMILY PRACTITIONER. PT IS HYPERTENSIVE 207/101. SKIN IS WARM AND DRY. HOB ELEVATED. BED AT LOWEST POSITION. SIDE RAILS UP X2. AMOXICILLIN, CLAVULANIC ACID HTN, DM2
[2023-03-09] MEDS ORDERED: MORPHINE SULFATE 4 MG/ML SYR IVP ONE ×2 (07:05→08:50)
[2023-03-09] MEDS ORDERED: ONDANSETRON 4 MG/2 ML VIAL IVP ONE (07:05)
--- NOTE | 2023-03-09 07:16 | NUR ---
58YR OLD M PRESENTS W/RT FLANK PIAN, BILAT LEG PAIN 8/10,NUMBNESS,TINGLING,N,V TODAY. PT DENIES CP OR SOB. AXO4, ON SERVICE PROVIDER, NAD, SAFETY MAINTAINED. AMOXICILLIN, CLAVULANIC ACID HTN, DM2
--- NOTE | 2023-03-09 07:16 | NUR ---
REPORT RECEIVED FROM SWATI DONAHUE. ALL QUESTIONS ANSWERED.
--- NOTE | 2023-03-09 07:45 | NUR ---
PT C/O RUQ PAIN RAD TO HIS BACK , ASSO WITH N/V, MEDS GIVEN ORDERED
[2023-03-09] MEDS ORDERED: ENALAPRILAT 2.5 MG/2 ML VIAL IVP ONE (08:10)
[2023-03-09] MEDS ORDERED: ONDA8TAB87 PO (08:14)
--- NOTE | 2023-03-09 08:34 | NUR ---
BP202/85 , ASYMPTOMATIC, MD MADE AWARE , ORDER RECEIVED AND CARRIED OUT
--- NOTE | 2023-03-09 08:46 | NUR ---
PT STATES HE IS STILL HAVING PAIN 04/26.
--- NOTE | 2023-03-09 09:04 | NUR ---
PAIN PERSIST ,ADDITIONAL ORDER FOR PAIN MED RECEIVED.PT REMAIN HYPERTENSIVE, MADE AWARE
--- NOTE | 2023-03-09 09:36 | NUR ---
BLOOD PRESSURE 199/86, DR. DOWD AWARE
--- NOTE | 2023-03-09 10:31 | NUR ---
Patient discharged with v/s stable. Written and verbal after care instructions given and explained. Patient alert, oriented and verbalized understanding of instructions. Ambulatory with steady gait. All questions addressed prior to discharge. ID band removed. Patient advised to follow up with PMD. Rx of ZOFRAN given. Opportunity to ask questions provided and answered.
[2023-03-09 10:41] VITALS: BP 195/85
--- NOTE | 2023-03-09 10:42 | NUR ---
The patient's care was reviewed and supervised by ABRAM NAVA RN.
--- NOTE | 2023-03-09 13:36 | NUR ---
PT RETURNED FOR SALINE LOCK REMOVAL TUCKED UNDER SWEATER.
== END 2023-03-09 10:31 | disposition home or self-care (01) ==
LOC: MED 06:40
DX: M54.50 Low back pain, unspecified (principal); R11.2 Nausea with vomiting, unspecified; E11.9 Type 2 diabetes mellitus without complications; I10 Essential (primary) hypertension; E03.9 Hypothyroidism, unspecified; Z79.4 Long term (current) use of insulin; Z79.899 Other long term (current) drug therapy; N18.9 Chronic kidney disease, unspecified; Z72.89 Other problems related to lifestyle; Z88.1 Allergy status to other antibiotic agents; Z88.8 Allergy status to other drugs, medicaments and biological substances; Z98.890 Other specified postprocedural states
CPT/HCPCS: 96374; 96375; 96376; 99285; J2270; J2405; J3490

== ENCOUNTER 2023-05-02 07:23 | Inpatient (IN) | payer OTHER, MEDICAID ==
[2023-05-02] VITALS (8 sets, daily range): BP systolic 115–237; BP diastolic 55–116; PULSE 66–99; RESP 18; TEMP 97.6–98.6; O2SAT 98–100
[~2023-05-02] VITALS: Ht 157.5 cm; Wt 72.6 kg
[~2023-05-02 07:23] MED LIST changes: +ONDA8TAB87 PO
[2023-05-02] MEDS ORDERED: KETOROLAC 30 MG/ML VIAL IM ONE (08:20)
[2023-05-02 08:33] LABS: BASOPHILS % (AUTO) 0.6 % (0.0-2.0); EOSINOPHILS # (AUTO) 0.2 K/uL (0-0.4); EOSINOPHILS % (AUTO) 3.5 % (0.0-4.0); HEMATOCRIT 32.3 % (36-52); HEMOGLOBIN 11.4 g/dL (12.0-18.0); LYMPHOCYTES # (AUTO) 1.3 K/uL (2.0-11.5); MEAN CORPUSCULAR HEMOGLOBIN 30 pg (27-31); MEAN CORPUSCULAR HGB CONC 36 g/dL (33-37); MEAN CORPUSCULAR VOLUME 85.7 fL (80-94); MONOCYTES # (AUTO) 0.5 K/uL (0.8-1.0); MONOCYTES % (AUTO) 9.3 % (1.7-9.3); NEUTROPHILS # (AUTO) 2.9 K/uL (1.8-7.7); NEUTROPHILS % (AUTO) 60.6 % (42.2-75.2); PLATELET COUNT (AUTO) 142 K/uL (140-450); RED BLOOD CELL COUNT(AUTO) 3.76 MIL/uL (4.20-6.10); RED CELL DISTRIBUTION WIDTH 14.4 % (11.6-13.7); WHITE BLOOD COUNT (AUTO) 4.8 K/uL (4.8-10.8)
[2023-05-02 08:51] LABS: ALBUMIN 3.2 g/dL (3.4-5.0); ANION GAP 12.4 (8-16); CREATININE 3.7 mg/dL (0.6-1.3); POTASSIUM 3.4 mmol/L (3.5-5.1); TOTAL BILIRUBIN 0.5 mg/dL (0.0-1.0); TOTAL PROTEIN, SERUM 7.7 g/dL (6.4-8.2)
[2023-05-02 09:02] LABS: CALCIUM 12.1 mg/dL (8.5-10.1)
[2023-05-02] MEDS ORDERED: NACL 0.9% 1,000 ML IV ONE (09:05)
[2023-05-02] MEDS ORDERED: MAG SULF 2000 MG/WATER PREMIX 50 ML IV PRN (11:40)
[2023-05-02] MEDS ORDERED: ACETAMINOPHEN 325 MG TAB PO PRN (11:40)
[2023-05-02] MEDS ORDERED: ONDANSETRON 4 MG/2 ML VIAL IVP PRN (11:40)
[2023-05-02] MEDS ORDERED: LORazepam 1 MG TAB PO PRN (11:40)
[2023-05-02] MEDS ORDERED: MORPHINE SULFATE 4 MG/ML SYR IVP PRN (11:40)
[2023-05-02] MEDS ORDERED: ZOLPIDEM 5 MG TAB PO PRN (11:40)
[2023-05-02] MEDS ORDERED: CALCITONIN INJ 200 IU/ML VIAL SUBQ SCH (11:40)
[2023-05-02] MEDS: NACL 0.9% 1,000 ML IV SCH ×2 (12:59→13:00)
[2023-05-02] MEDS ORDERED: carvediloL 12.5 MG TAB PO SCH (14:23)
[2023-05-02] MEDS ORDERED: NIFEdipine 60 MG TABER PO SCH (14:23)
[2023-05-02] MEDS ORDERED: PAMIDRONATE 60 MG in NACL 0.9% 1,000 ML IV ONE (18:00)
[2023-05-02] MEDS ORDERED: INSULIN LISPRO SLIDING SCALE 100 UNITS/ML VIAL SUBQ PRN (19:25)
[2023-05-02] MEDS ORDERED: DEXTROSE 50% 50 ML SYR IVP PRN (19:25)
[2023-05-02] MEDS: BLOOD GLUCOSE MONITORING 1 DEV DEV FS SCH (21:38)
[2023-05-02] MEDS: NIFEdipine 60 MG TABER PO SCH (21:42)
[2023-05-02] MEDS: carvediloL 12.5 MG TAB PO SCH (21:44)
[2023-05-03] MEDS: NACL 0.9% 1,000 ML IV SCH ×3 (02:45→14:20)
[2023-05-03 04:00] VITALS: BP 184/72; PULSE 68; RESP 18; TEMP 97.7; O2SAT 99
[2023-05-03 05:08] LABS: ANION GAP 11.6 (8-16); CALCIUM 11.1 mg/dL (8.5-10.1); CARBON DIOXIDE 25.8 mmol/L (21-32); CREATININE 3.5 mg/dL (0.6-1.3); POTASSIUM 3.4 mmol/L (3.5-5.1)
[2023-05-03 05:09] LABS: BASOPHILS % (AUTO) 0.5 % (0.0-2.0); EOSINOPHILS # (AUTO) 0.1 K/uL (0-0.4); EOSINOPHILS % (AUTO) 3.4 % (0.0-4.0); HEMATOCRIT 30.5 % (36-52); HEMOGLOBIN 10.9 g/dL (12.0-18.0); LYMPHOCYTES # (AUTO) 1.4 K/uL (2.0-11.5); LYMPHOCYTES % (AUTO) 32.1 % (20.5-51.1); MEAN CORPUSCULAR HEMOGLOBIN 30 pg (27-31); MEAN CORPUSCULAR HGB CONC 36 g/dL (33-37); MEAN CORPUSCULAR VOLUME 84.8 fL (80-94); MONOCYTES # (AUTO) 0.3 K/uL (0.8-1.0); MONOCYTES % (AUTO) 7.6 % (1.7-9.3); NEUTROPHILS # (AUTO) 2.5 K/uL (1.8-7.7); NEUTROPHILS % (AUTO) 56.4 % (42.2-75.2); PLATELET COUNT (AUTO) 134 K/uL (140-450); RED CELL DISTRIBUTION WIDTH 14.4 % (11.6-13.7); WHITE BLOOD COUNT (AUTO) 4.4 K/uL (4.8-10.8)
[2023-05-03] MEDS: BLOOD GLUCOSE MONITORING 1 DEV DEV FS SCH ×4 (06:49→21:24)
[2023-05-03] MEDS: CLONIDINE HYDROCHLORIDE 0.1 MG TAB PO PRN (06:59)
[2023-05-03 08:00] VITALS: BP 184/64; PULSE 68; RESP 16; TEMP 98.6; O2SAT 98; O2SAT 99
[2023-05-03] MEDS: carvediloL 12.5 MG TAB PO SCH ×2 (08:33→21:23)
[2023-05-03] MEDS: NIFEdipine 60 MG TABER PO SCH ×2 (08:34→21:24)
[2023-05-03] MEDS: DOCUSATE SODIUM 100 MG GELCAP PO SCH (08:34)
[2023-05-03] MEDS ORDERED: POTASSIUM CHLORIDE 10 MEQ TABER PO SCH (09:46)
[2023-05-03] MEDS: HYDROcodone/APAP 5/325 MG 1 TAB TAB PO PRN (13:58)
[2023-05-03 16:00] VITALS: BP 150/60; PULSE 70; RESP 18; TEMP 98.5; O2SAT 97
[2023-05-03 20:00] VITALS: BP 160/65; PULSE 67; PULSE 70; RESP 16; RESP 18; TEMP 97.6; O2SAT 94; O2SAT 97
[2023-05-04] MEDS: NACL 0.9% 1,000 ML IV SCH (03:17)
[2023-05-04 04:00] VITALS: BP 133/64; PULSE 70; RESP 18; TEMP 97.9; O2SAT 98
[2023-05-04 05:25] LABS: BASOPHILS % (AUTO) 0.6 % (0.0-2.0); EOSINOPHILS # (AUTO) 0.2 K/uL (0-0.4); EOSINOPHILS % (AUTO) 3.5 % (0.0-4.0); HEMATOCRIT 30.4 % (36-52); HEMOGLOBIN 10.7 g/dL (12.0-18.0); LYMPHOCYTES # (AUTO) 1.1 K/uL (2.0-11.5); LYMPHOCYTES % (AUTO) 25.6 % (20.5-51.1); MEAN CORPUSCULAR HEMOGLOBIN 30 pg (27-31); MEAN CORPUSCULAR HGB CONC 35 g/dL (33-37); MEAN CORPUSCULAR VOLUME 85.1 fL (80-94); MONOCYTES # (AUTO) 0.3 K/uL (0.8-1.0); MONOCYTES % (AUTO) 7.3 % (1.7-9.3); NEUTROPHILS # (AUTO) 2.8 K/uL (1.8-7.7); PLATELET COUNT (AUTO) 141 K/uL (140-450); RED BLOOD CELL COUNT(AUTO) 3.57 MIL/uL (4.20-6.10); RED CELL DISTRIBUTION WIDTH 14.4 % (11.6-13.7); WHITE BLOOD COUNT (AUTO) 4.5 K/uL (4.8-10.8)
[2023-05-04 05:57] LABS: ANION GAP 14.7 (8-16); CALCIUM 11.2 mg/dL (8.5-10.1); CARBON DIOXIDE 21.5 mmol/L (21-32); CREATININE 3.6 mg/dL (0.6-1.3); POTASSIUM 4.2 mmol/L (3.5-5.1)
[2023-05-04] MEDS: BLOOD GLUCOSE MONITORING 1 DEV DEV FS SCH ×3 (06:44→16:36)
[2023-05-04 08:00] VITALS: BP 159/70; PULSE 70; RESP 17; TEMP 98.8; O2SAT 97
[2023-05-04] MEDS: NIFEdipine 60 MG TABER PO SCH (09:06)
[2023-05-04] MEDS: DOCUSATE SODIUM 100 MG GELCAP PO SCH (09:06)
[2023-05-04] MEDS: carvediloL 12.5 MG TAB PO SCH (09:07)
[2023-05-04 15:09] VITALS: BP 159/70; PULSE 70; RESP 70; TEMP 98.8
[2023-05-04 17:14] VITALS: BP 166/85; PULSE 70
[2023-05-04] MEDS: CLONIDINE HYDROCHLORIDE 0.1 MG TAB PO PRN (17:14)
[2023-05-04] MEDS: HYDROcodone/APAP 5/325 MG 1 TAB TAB PO PRN (17:15)
== END 2023-05-04 18:35 | disposition home or self-care (01) | DRG 683 ==
LOC: MED 07:23 → MMU 11:40 → MTU 12:07
PROVIDERS: ADMIT Internal Medicine; ATTEND Internal Medicine
DX: N17.9 Acute kidney failure, unspecified (principal); E44.0 Moderate protein-calorie malnutrition; N18.4 Chronic kidney disease, stage 4 (severe); E83.52 Hypercalcemia; K59.00 Constipation, unspecified; I12.9 Hypertensive chronic kidney disease with stage 1 through stage 4 chronic kidney disease, or unspecified chronic kidney disease; E87.6 Hypokalemia; E11.22 Type 2 diabetes mellitus with diabetic chronic kidney disease; N18.9 Chronic kidney disease, unspecified; E03.9 Hypothyroidism, unspecified; D64.9 Anemia, unspecified; Z68.29 Body mass index [BMI] 29.0-29.9, adult; Z88.8 Allergy status to other drugs, medicaments and biological substances
CPT/HCPCS: 36415; 80048; 80053; 82306; 82948; 83735; 85025; 87081; 96360; 96372; 97112; 97116; 97163-GP; 97530; 99285; J1644; J1815; J1885; J2430; J3475; J7030